=== PATIENT | male | born 1970 | race Two or more races ===

== ENCOUNTER 2021-10-30 17:55 | Emergency (ER) | payer MEDICAID, SELFPAY ==
[2021-10-30 18:07] VITALS: BP 135/86; PULSE 77; RESP 16; TEMP 36.7; O2SAT 95; BMI 39.5
[2021-10-30] MEDS: Acetaminophen 325 MG TABLET 975 MG PO (18:11)
--- NOTE | 2021-10-30 21:20 | ED_ITS ---
HPI - Back Pain/Injury General Chief Complaint: Back Pain/Injury Stated Complaint: Back pain Time Seen by Provider: 10/30/21 21:20 Source: patient Mode of arrival: ambulatory Limitations: no limitations History of Present Illness HPI Narrative: 51-year-old male no known medical history presents to the emergency department complaints of back pain x1 day. Patient tells me he works for [employer] and does a lot of heavy lifting, he was putting down a suitcase in front of him and suddenly started having lower back pain particularly to the left lower back, radiating to the left lower extremity just above the knee. Patient tells me he has had back pain before however he has never felt this weird radiation. Patient tells me it is intermittent in nature worse with certain movements better at rest. He rates it a 10/10 at some points. Denies numbness, tingling, weakness, bowel/urinary incontinence/retention, history of IV drug abuse, history of spinal surgery/injections. MD elicited complaint: back pain Onset (ago): day(s) (1) Timing: intermittent Severity: severe Pain scale (0-10): 10 Quality: sharp Location: lumbar spine Radiation: none Exacerbating factors: movement Relieving factors: immobilization Context: while lifting and bending Associated symptoms: denies other symptoms Related Data Previous Rx's Medication Instructions Recorded cyclobenzaprine 10 mg tablet 10 mg PO BEDTIME PRN #7 tab 10/30/21 lidocaine 5 % topical patch 1 patch TOPICAL DAILY PRN #15 ea 10/30/21 naproxen 500 mg tablet 500 mg PO BID PRN #14 tab 10/30/21 Allergies Allergy/AdvReac Type Severity Reaction Status Date / Time No Known Allergies Allergy Verified 10/30/21 18:09 Review of Systems Review of Systems: Constitutional : No Weight loss, No Fever, No Chills, No Fatigue, No Malaise ENT/Mouth : No sore throat, No Rhinorrhea Eyes: No Eye Pain, No Swelling, No Redness Cardiovascular : No Chest Pain, No SOB, No Dyspnea on Exertion, No Orthopnea, No Edema, No Palpitations Respiratory : No Cough, No Sputum, No Wheezing Gastrointestinal : No Nausea, No Vomiting, No Diarrhea, No Constipation, No abdominal Pain, No Hematochezia, No Melena Genitourinary : No Dysuria, No Urinary Frequency, No Hematuria, Musculoskeletal : No joint pain, No Myalgias, No Joint Swelling Skin : No Skin Lesions, No rash Neuro : No Weakness, No Numbness, No Dizziness, No Headache Psych : No Anxiety/Panic, No Depression All other systems reviewed and are negative Yes all other systems are reviewed and are negative [facility] Past Medical History Attestation statement: The following information was validated with the patient. Source: old records reviewed and nursing notes reviewed Physical Exam Vital Signs: Vital Signs: Last Vital Signs Temp 98.0 F 10/30/21 18:07 Pulse 77 10/30/21 18:07 Resp 16 10/30/21 18:07 BP 135/86 10/30/21 18:07 Pulse Ox 95 10/30/21 18:07 BMI result Body Mass Index 39.5 Vital signs stable Appearance: Alert.? Oriented X3.? No acute distress.? Head: Normocephalic, atraumatic, no step-offs or deformities Eyes: Pupils equal, round and reactive to light.? ENT: Pharynx normal.? Neck: Normal inspection.? Neck supple.? CVS: Normal heart rate and rhythm.? Pulses normal.? Respiratory: No respiratory distress.? Breath sounds normal.? Abdomen: Soft and nontender.? Skin: Skin warm and dry.? Normal skin color.? Normal skin turgor.? Extremities: No lower extremity edema.? No calf ttp. 5/5 strength to bilateral upper and lower extremities Back: No midline tenderness, no C-spine tenderness, full range of motion however pain with forward flexion and extension, no CVA tenderness bilaterally, + paraspinous tenderness to the left lumbar spine region.+ positive straight leg raise bilaterally. Neuro: Oriented X 3.? No motor deficit.? No sensory deficit. CN 2-12 intact . Patient ambulating with steady gait with normal coordination. No saddle paresthesias. Proprioception intact. Course Reevaluation(s) Reevaluation #1: Patient given Toradol, Lidoderm patch. At this time patient will be discharged home with PCP follow-up. Educated him on worrisome signs and symptoms and when to return. At this time I feel comfortable discharge home. Time: 21:26 MDM - Back Pain/Injury MDM Narrative Medical decision making narrative: 2123 51 yo m presents as lower back pain status post heavy lifting and bending over to put down a suitcase. Denies red flag symptoms. Physical examination significant for No midline tenderness, no C-spine tenderness, full range of motion however pain with forward flexion and extension, no CVA tenderness bilaterally, Paraspinous tenderness to the left lumbar spine region. Positive straight leg raise bilaterally. Oriented X 3.? No motor deficit.? No sensory deficit. CN 2-12 intact . Patient ambulating with s teady gait with normal coordination. No saddle paresthesias. Proprioception intact. Based off patient history and physical examination unlikely that this is cauda equina or epidural abscess. Likely sciatica or herniated disc. Plan at this time is Toradol, lidocaine patch. No need for imaging as this is atraumatic back pain. Medical Records Attestation: I reviewed the patient's medical records. Lab Data Attestation: I reviewed the patient's lab results. Critical Care Time Critical Care Time Critical Care Time: No Discharge Plan Discharge Clinical Impression: Strain of lumbar region, Sciatica Patient Disposition: Home, Self-Care Instructions: Sciatica (ED), Back Pain (ED), Lower Back Exercises (ED) Additional Instructions: Take your medications as prescribed. Follow-up with your primary care provider this week. Return to the emergency department with new or worsening symptoms. Such as fevers, chills, chest pain, shortness of breath, nausea, vomiting, dizziness, headache, vision changes, lethargy, numbness, tingling, inability to control your bladder/bowel, worsening pain In case of emergency call 911 Prescriptions: New cyclobenzaprine 10 mg tablet 10 mg PO BEDTIME PRN (Reason: muscle spasm) Qty: 7 0RF lidocaine 5 % adhesive patch,medicated 1 patch topical DAILY PRN (Reason: pain) Qty: 15 0RF Rx Instructions: leave on most painful area for up to 12 hrs naproxen 500 mg tablet 500 mg PO BID PRN (Reason: pain) Qty: 14 0RF Rx Instructions: Take with food Referrals: Physician,None [Primary Care Provider] - 2 days Stand Alone Forms: Work/School Release
[2021-10-30] MEDS: Lidocaine 4 % Patch ADH..PATCH 1 PATCH TRANSDERMA (21:50)
[2021-10-30] MEDS: Ketorolac Tromethamine 15 MG/ML VIAL 30 MG IM (21:51)
== END 2021-10-30 21:58 | disposition home or self-care (01) ==
LOC: HO.ED 21:49
PROVIDERS: Emergency Provider Internal Medicine
DX: S39.012A Strain of muscle, fascia and tendon of lower back, initial encounter (principal); M54.40 Lumbago with sciatica, unspecified side; X50.0XXA Overexertion from strenuous movement or load, initial encounter; Y93.9 Activity, unspecified; Y92.9 Unspecified place or not applicable; Y99.9 Unspecified external cause status
CPT/HCPCS: 96372; 99282; 99284; J1885

== ENCOUNTER 2022-12-13 11:22 | Outpatient (REF) | payer MEDICAID, SELFPAY ==
[2022-12-13 15:32] LABS: Alanine Aminotransferase 18 U/L (0-40); Albumin Level 4.2 g/dL (3.5-5.0); Alkaline Phosphatase 60 U/L (39-117); Aspartate Amino Transferase 19 U/L (5-37); Bilirubin Direct 0.2 mg/dL (0.0-0.5); Bilirubin Total 0.5 mg/dL (0.0-1.0); Total Protein 7.6 g/dL (6.5-8.0)
[2022-12-13 15:51] LABS: Syphilis Screen Nonreactive (Nonreactive)
[2022-12-14 05:41] LABS: HBS Num1 0.11 mIU/mL (0-7.99); HBc Num1 0.18 S/CO (0.00-0.79); HBsAGNum1 0.32 S/CO (0.00-0.99); Hepatitis B Core Antibody Nonreactive (Nonreactive); Hepatitis B Surface Antigen Negative (Negative); ~HepC Num1 0.15 S/CO (0.00-0.79); ~Hepatitis B Surface Antibody NONREACTIVE (Nonreactive); ~Hepatitis C Antibody Nonreactive (Nonreactive)
[2022-12-14 05:47] LABS: Hepatitis A Antibody IgG Nonreactive (Nonreactive); ~Hepatitis A Antibody IgG 0.84 S/CO (0.00-0.99)
[2022-12-16 02:03] LABS: TS Negative Control Passed; TS Panel A 5; TS Panel B 10; TS Positive Control Passed; TSpotTB Positive (Negative)
== END 2022-12-13 11:23 | disposition home or self-care (01) ==
LOC: CF 11:22
PROVIDERS: Visit Provider Family Medicine
DX: Z11.1 Encounter for screening for respiratory tuberculosis (principal); F11.20 Opioid dependence, uncomplicated
CPT/HCPCS: 80076; 86481; 86704; 86706; 86708; 86780; 86803; 87340

== ENCOUNTER 2022-12-28 11:45 | Outpatient (REF) | payer MEDICAID, SELFPAY ==
--- NOTE | ~2022-12-28 | XR_ITS ---
EXAMINATION: XR CHEST CLINICAL INFORMATION: Positive TB test COMPARISON: None available. TECHNIQUE: 2 views of the chest were obtained. FINDINGS: No significant abnormality is noted involving the heart, lungs, mediastinum, bony thorax or soft tissues. XR/XR chest 2V IMPRESSION: Unremarkable examination.
== END 2022-12-28 11:46 | disposition home or self-care (01) ==
LOC: HO.XRAY 11:45
PROVIDERS: Visit Provider Family Medicine
DX: R76.11 Nonspecific reaction to tuberculin skin test without active tuberculosis (principal)
CPT/HCPCS: 71046

== ENCOUNTER 2023-02-05 09:27 | Emergency (ER) | payer MEDICAID, SELFPAY ==
[2023-02-05 09:54] VITALS: BP 125/69; PULSE 67; RESP 18; TEMP 36.6; O2SAT 98; BMI 37.2
--- NOTE | 2023-02-05 11:24 | ED_ITS ---
HPI - Male Genitourinary General Chief complaint: Urogenital-Male Stated complaint: antibodics wanted Time Seen by Provider: 02/05/23 10:41 Source: patient Mode of arrival: ambulatory Limitations: no limitations History of Present Illness HPI Narrative: This is a 52-year-old male with a history of urinary tract infections who presents to the ER with complaints of dysuria for 3 days. Patient denies penile discharge, testicular pain or swelling, rashes, lesions, fevers, abdominal pain, back pain, vomiting. Patient denies any concern for STDs. Related Data Previous Rx's Medication Instructions Recorded cyclobenzaprine 10 mg tablet 10 mg PO BEDTIME PRN muscle spasm 10/30/21 #7 tabs lidocaine 5 % topical patch 1 patch topical DAILY PRN pain #15 10/30/21 ea naproxen 500 mg tablet 500 mg PO BID PRN pain #14 tabs 10/30/21 cefuroxime axetil 500 mg tablet 500 mg PO BID #14 tabs 02/05/23 Allergies Allergy/AdvReac Type Severity Reaction Status Date / Time No Known Allergies Allergy Verified 02/05/23 09:54 Review of Systems Review of Systems: Yes all other systems are reviewed and are negative Constitutional: Constitutional: Reports no additional constitutional complaints, Denies body ache(s), Denies chills, Denies fever(s), Denies headache(s) and Denies weakness Eyes: Eyes: Reports no additional eye complaints and Denies change in vision ENT: Reports system reviewed and no additional complaints, except as documented, Denies dizziness, Denies headache(s), Denies nasal congestion, Denies nasal discharge and Denies neck pain Cardiovascular: Cardiovascular: Reports no additional cardiovascular complaints, Denies chest pain, Denies leg edema and Denies dyspnea Respiratory: Respiratory: Reports no additional respiratory complaints, Denies cough and Denies dyspnea Gastrointestinal: Gastrointestinal: Reports no additional gastrointestinal complaints, Denies abdominal pain, Denies diarrhea, Denies nausea and Denies vomiting Genitourinary: Genitourinary: Reports dysuria, Denies penile discharge, Denies testicular mass, Denies testicular pain, Denies urinary frequency, Denies urinary hesitancy, Denies urinary incontinence and Denies urinary urgency Musculoskeletal: Musculoskeletal: Reports no additional musculoskeletal complaints, Denies back pain, Denies arthralgias, Denies joint swelling, Denies neck pain, Denies numbness and Denies tingling Integumentary/Breasts: Skin/Breast: Reports system reviewed and no additional complaints, except as docu and Denies rash Neurologic: Reports system reviewed and no additional complaints, except as documented, Denies Abnormal speech present, Denies dizziness, Denies headache(s), Denies numbness, Denies tingling and Denies weakness PMFSH Past Medical History Attestation statement: The following information was validated with the patient. Source: old records reviewed and nursing notes reviewed Social History Social History Advance Directives: No Advance Directives Information Provided: Yes Physical Exam Vital Signs: Vital Signs: Last Vital Signs Temp 98 F 02/05/23 09:54 Pulse 67 02/05/23 09:54 Resp 18 02/05/23 09:54 BP 125/69 02/05/23 09:54 Pulse Ox 98 02/05/23 09:54 BMI result Body Mass Index 37.2 Const: General: cooperative, healthy appearing, comfortable and no acute distress Orientation/consciousness: patient oriented x3 Limitations: no limitations HEENT: Head: Yes normal to inspection Ears: hearing grossly normal bilaterally General nose exam: Normal external nose present Face and sinus: Yes normal facial exam Mouth: Normal oral and palatal mucosa present Throat: Yes posterior oropharynx normal Eyes: General: appearance normal, both eyes and all related structures Pupils: Equal, round and reactive pupils present Neck: Neck: Yes normal visual inspection Chest: Chest palpation & inspection: normal inspection of the chest Resp: Effort & Inspection: normal respiratory effort Auscultation: clear to auscultation bilaterally Cardio: Rate: regular rate Rhythm: regular rhythm Peripheral pulses: Peripheral pulses 2+ throughout GI: Inspection: Yes normal to inspection Palpation (GI): Soft to palpation and nontender Auscultation: normal bowel sounds : Other: deferred by patient General: Yes no CVA tenderness Back/Spine/Pelvis: Back: no CVA tenderness Thoracic/Lumbar Spine: thoracic and lumbar spine normal to inspection Skin: General skin exam: no rashes or lesions noted Neuro: General: patient oriented x3, no focal motor deficits and normal sensation to monofilament Cranial nerves: Yes Equal, round and reactive pupils present Cognition (Neuro): normal cognition Speech: No Abnormal speech present Gait exam (Neuro): Normal gait present Motor exam (neuro): 5/5 motor strength present throughout Extrem: General: Yes normal to inspection Course Course Course Narrative: UA is consistent with UTI. No concern for pyelonephritis or renal colic. Patient is nontoxic, afebrile, tolerating p.o.. Plan for discharge home with oral antibiotics. Reviewed worrisome signs and symptoms when to return to the emergency room. Comfortable plan for discharge home. Medical Decision Making Medical Decision Making [facility] Narrative: This is a 52-year-old male with a history of urinary tract infections who presents to the ER with complaints of dysuria for 3 days. Patient denies penile discharge, testicular pain or swelling, rashes, lesions, fevers, abdominal pain, back pain, vomiting. Patient denies any concern for STDs. NO focal abdominal pain, no CVAT. VSS Deferred exam. Low concern for STI,does not want testing Will send UA Differential Diagnosis Differential Diagnoses: The differential diagnosis associated with the presentation includes UTI STI- patient has low concern, deferred exam renal colic, pyelo- no flank pain, abdominal pain Admission/Observation Consideration of admission/observation: Escalation of care including admission/observation considered UA is consistent with UTI. No concern for pyelonephritis or renal colic. Patient is nontoxic, afebrile, tolerating p.o.. No need for labs, IV antibiotics and admission Lab Data [facility] Lab Attestation statement: I reviewed the patient's lab results. + UTI Labs: Lab Results 02/05/23 Range/Units 11:47 Urine Color Yellow Urine Appearance Cloudy Urine pH 8.0 (5.0-9.0) Ur Specific [place] 1.020 (1.005-1.025) Urine Protein 30 (1+) H (Neg-Trace) mg/dL Urine Glucose (UA) Negative (Negative) mg/dL Urine Ketones Negative (Negative) mg/dL Urine Blood Trace H (Negative) Urine Nitrite Negative (Negative) Ur Leukocyte Esterase Large (3+) H (Negative) Urine RBC 3-5 H (0-2) /HPF Urine WBC >50 H (0-5) /HPF Ur Squamous Epith Cells 0-2 (0-2) /HPF Urine Bacteria 4+ (None Seen) Hyaline Casts 0-2 (0-2) /LPF Prescription Management I considered prescription management with: Antibiotic see above Discharge Plan Discharge Clinical Impression: Urinary tract infection Patient Disposition: Home, Self-Care Instructions: Urinary Tract Infection in Men (ED) Additional Instructions: Take the antibiotics as prescribed Increase fluids, rest Prescriptions: New cefuroxime axetil 500 mg tablet 500 mg PO BID Qty: 14 0RF No Action cyclobenzaprine 10 mg tablet 10 mg PO BEDTIME PRN (Reason: muscle spasm) Qty: 7 0RF lidocaine 5 % adhesive patch,medicated 1 patch topical DAILY PRN (Reason: pain) Qty: 15 0RF Rx Instructions: leave on most painful area for up to 12 hrs naproxen 500 mg tablet 500 mg PO BID PRN (Reason: pain) Qty: 14 0RF Rx Instructions: Take with food Referrals: Physician,None [Primary Care Provider] - 1 week
[2023-02-05 11:54] LABS: Appearance Urine Cloudy; Color Urine Yellow; Glucose Urine UA Negative (Negative); Leukocyte Esterase Urine Large (3+) (Negative); Nitrite Urine Negative (Negative); UMIC TRIGGER UACC YES; Urine Blood Trace (Negative); Urine Ketones Negative (Negative); Urine Protein 30 (1+) mg/dL (Neg-Trace)
[2023-02-05 12:12] LABS: Bacteria Urine 4+ (None Seen); Hyaline Casts Urine 0-2 /LPF (0-2); Squamous Epithelial Cell Urine 0-2 /HPF (0-2); UACC Culture Trigger YES; WBC Urine >50 /HPF (0-5)
== END 2023-02-05 12:39 | disposition home or self-care (01) ==
PROVIDERS: Nurse Practitioner Family; Emergency Provider Emergency Medicine
DX: N39.0 Urinary tract infection, site not specified (principal); B96.4 Proteus (mirabilis) (morganii) as the cause of diseases classified elsewhere
CPT/HCPCS: 81001; 87086; 87088; 87186; 99282; 99283

== ENCOUNTER 2023-04-04 13:25 | Outpatient (REF) | payer MEDICAID, SELFPAY | END 2023-04-04 13:26 | disposition home or self-care (01) | LOC: HO.CHCLNP 13:25 | PROVIDERS: Visit Provider Family Medicine | DX: R30.0 Dysuria (principal) | CPT/HCPCS: 87086; 87088; 87186 ==

== ENCOUNTER 2023-04-07 09:43 | Outpatient (REF) | payer MEDICAID, SELFPAY ==
--- NOTE | ~2023-04-07 | XR_ITS ---
EXAMINATION: XR KNEE, LEFT CLINICAL INFORMATION: Chronic pain of left knee COMPARISON: None available. TECHNIQUE: Four views of the left knee. FINDINGS: No fracture. Small joint effusion. There is severe narrowing of the medial joint compartment with large marginal osteophytes with partial [id number] appearance. There is mild narrowing of the patellofemoral joint compartment.. No abnormal soft tissue calcification. 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
--- NOTE | ~2023-04-07 | XR_ITS ---
EXAMINATION: XR SHOULDER, LEFT CLINICAL INFORMATION: Bilateral shoulder and chronic left knee pain COMPARISON: None available. TECHNIQUE: AP external rotation, Grashey, scapular Y, and axillary views of the left shoulder. FINDINGS: The bones are intact. No fracture. No dislocation. This decrease in the size of the normal subacromial space which raises the possibility of impingement syndrome. The glenohumeral joint and acromioclavicular joints are within normal limits. No abnormal soft tissue calcifications. XR/XR shoulder LT min 2V IMPRESSION: 1. No acute bony abnormality. 2. Question of impingement syndrome. MRI scan could be obtained for further evaluation.
--- NOTE | ~2023-04-07 | XR_ITS ---
EXAMINATION: XR SHOULDER, RIGHT CLINICAL INFORMATION: Bilateral shoulder and chronic left knee pain COMPARISON: None available. TECHNIQUE: AP external rotation, Grashey, scapular Y, and axillary views of the right shoulder. FINDINGS: The bones are intact. No fracture. Glenohumeral and acromioclavicular alignment is anatomic with normal glenohumeral joint space. Moderate degenerative change of acromioclavicular joint. Small calcification is seen inferior to the acromium which could be related to calcific tendinitis. XR/XR shoulder RT min 2V IMPRESSION: 1. Moderate degenerative change of the acromioclavicular joint. 2. Possible calcific tendinitis.
== END 2023-04-07 09:44 | disposition home or self-care (01) ==
LOC: HO.XRAY 09:43
PROVIDERS: PCP Family Medicine; Visit Provider Family Medicine
DX: M25.562 Pain in left knee (principal); G89.29 Other chronic pain; M25.511 Pain in right shoulder; M25.512 Pain in left shoulder
CPT/HCPCS: 73030; 73564

== ENCOUNTER 2023-05-18 16:26 | Outpatient (REF) | payer MEDICAID, SELFPAY ==
[2023-05-18 18:05] LABS: Appearance Urine Clear; Color Urine Yellow; Glucose Urine UA Negative (Negative); Leukocyte Esterase Urine Small (1+) (Negative); Nitrite Urine Negative (Negative); Specific Gravity - Urine 1.025 (1.005-1.025); UMIC TRIGGER UACC YES; Urine Blood Negative (Negative); Urine Ketones Negative (Negative); Urine Protein Negative (Neg-Trace)
[2023-05-18 18:09] LABS: Bacteria Urine 1+ (None Seen); Hyaline Casts Urine 0-2 /LPF (0-2); RBC Urine 0-2 /HPF (0-2); Squamous Epithelial Cell Urine 0-2 /HPF (0-2); UACC Culture Trigger YES
== END 2023-05-18 16:27 | disposition home or self-care (01) ==
LOC: HO.CHCLNP 16:26
PROVIDERS: Visit Provider Family Medicine
DX: R30.0 Dysuria (principal)
CPT/HCPCS: 81001; 87086

== ENCOUNTER 2023-06-23 15:55 | Outpatient (REF) | payer MEDICAID, SELFPAY ==
[2023-06-23 17:41] LABS: Appearance Urine Clear; Color Urine Yellow; Glucose Urine UA Negative (Negative); Leukocyte Esterase Urine Negative (Negative); Nitrite Urine Negative (Negative); Specific Gravity - Urine 1.015 (1.005-1.025); Urine Blood Negative (Negative); Urine Ketones Negative (Negative); Urine Protein Negative (Neg-Trace)
[2023-06-23 17:44] LABS: Bacteria Urine None Seen (None Seen); Hyaline Casts Urine 0-2 /LPF (0-2); RBC Urine 0-2 /HPF (0-2); Squamous Epithelial Cell Urine 0-2 /HPF (0-2); WBC Urine 0-5 /HPF (0-5)
[2023-06-23 18:26] LABS: Alanine Aminotransferase 21 U/L (0-40); Albumin Level 3.9 g/dL (3.5-5.0); Alkaline Phosphatase 58 U/L (39-117); Anion Gap 11 (12-20); Aspartate Amino Transferase 20 U/L (5-37); Bilirubin Total 0.4 mg/dL (0.0-1.0); Blood Urea Nitrogen 14 mg/dL (9-16); Calcium 9.1 mg/dL (8.4-10.2); Carbon Dioxide 29 mmol/L (22-29); Chloride 104 mmol/L (96-108); Cholesterol 158 mg/dL (<200); Estimated Glomerular Filt Rate > 60; Glucose Random 88 mg/dL (60-115); HDL Cholesterol 51 mg/dL (>40); LDL Cholesterol Calculated 90 mg/dL (<100); Potassium 4.1 mmol/L (3.3-5.1); Sodium 140 mmol/L (135-145); Total Protein 7.4 g/dL (6.5-8.0); Triglycerides 89 mg/dL (<150)
[2023-06-23 18:41] LABS: TSH reflex Free T4 1.02 uIU/mL (0.32-4.0)
[2023-06-23 18:42] LABS: Prostate Specific Antigen 0.23 ng/mL (<0.05-4.0)
[2023-06-24 07:15] LABS: Syphilis Screen Nonreactive (Nonreactive)
== END 2023-06-23 15:56 | disposition home or self-care (01) ==
LOC: HO.CHCLDS 15:55
PROVIDERS: Visit Provider Family Medicine
DX: E66.01 Morbid (severe) obesity due to excess calories (principal); R30.0 Dysuria; N39.0 Urinary tract infection, site not specified; Z68.42 Body mass index [BMI] 45.0-49.9, adult
CPT/HCPCS: 36415; 80053; 80061; 80307; 81001; 84153; 84443; 86780

== ENCOUNTER 2023-08-26 10:29 | Emergency (ER) | payer OTHER, SELFPAY ==
--- NOTE | ~2023-08-26 | XR_ITS ---
EXAMINATION: XR SHOULDER, RIGHT CLINICAL INFORMATION: Pain injury COMPARISON: Right shoulder radiograph from 04/07/2023 TECHNIQUE: Two views of the right shoulder. FINDINGS: No acute visible fracture or dislocation. Arthritic changes of the glenohumeral and acromioclavicular joint. Joint space alignment otherwise maintained. Soft tissues are unremarkable. Visualized portions of the chest are unremarkable. XR/XR shoulder RT min 2V IMPRESSION: 1. No acute visible fracture or dislocation. 2. Arthritic changes of the glenohumeral and acromioclavicular joint.
[2023-08-26 11:01] VITALS: BP 129/78; PULSE 63; RESP 16; TEMP 36.9; O2SAT 97; BMI 48.3
--- NOTE | 2023-08-26 11:09 | ED_ITS ---
HPI - Extremity Problem General Chief complaint: Extremity Injury, Upper Stated complaint: R shoulder pain Time Seen by Provider: 08/26/23 13:35 Source: patient, family () and RN notes reviewed Mode of arrival: ambulatory Limitations: no limitations History of Present Illness HPI Narrative: 53 year old male with no significant pmhx presents to the ED today for evaluation of right upper arm/ shoulder pain s/p lifting up a heavy box yesterday. States as he was lifting the box, the came back towards him and fell into his right shoulder. Admits to hearing a popping sensation. Endorses pain to right shoulder since this time. He has been taking Motrin at home with some improvement in pain. Admits to history of arthritis requiring corticosteroid injections. Denies previous injury/ trauma or surgery to right shoulder. Denies fever, chills, numbness/tingling/weakness of the RUE. Denies hx of IVDU. Related Data Previous Rx's Medication Instructions Recorded cyclobenzaprine 10 mg tablet 10 mg PO BEDTIME PRN muscle spasm 10/30/21 #7 tabs lidocaine 5 % topical patch 1 patch topical DAILY PRN pain #15 10/30/21 ea naproxen 500 mg tablet 500 mg PO BID PRN pain #14 tabs 10/30/21 cefuroxime axetil 500 mg tablet 500 mg PO BID #14 tabs 02/05/23 ibuprofen 800 mg tablet 800 mg PO Q6-8H PRN pain (scale 08/26/23 score 4-6) #20 tabs prednisone 20 mg tablet 40 mg (2 x 20 mg) PO DAILY 5 days 08/26/23 #10 tabs Allergies Allergy/AdvReac Type Severity Reaction Status Date / Time No Known Allergies Allergy Verified 08/26/23 11:01 Review of Systems Review of Systems: Constitutional: No fever, chills, fatigue, night sweats, weight changes ENT/Mouth: No ear pain, hearing loss, nasal congestion, sinus pain, rhinorrhea, sore throat Eyes: No eye pain, swelling, redness, vision changes, discharge Cardio: No chest pain, palpitations, CONDON, orthopnea, peripheral edema Pulm: No SOB, cough, sputum, wheezing, dyspnea, hemoptysis GI: No nausea, vomiting, hematemesis, abdominal pain, diarrhea, constipation, hematochezia, melena : No irregular bleeding, dysuria, frequency, urgency, hesitancy, hematuria, flank pain, urinary flow changes, urinary incontinence or retention MSK: No back pain, neck pain, joint pain, myalgias, +right shoulder pain Skin: No lesions, rashes Neuro: No weakness, numbness, paresthesias, LOC, dizziness, headache Psych: No anxiety/panic, depression, SI/HI, AH/VH All other systems reviewed and are negative. [facility] Past Medical History Attestation statement: The following information was validated with the patient. Source: old records reviewed and nursing notes reviewed Social History Social History Advance Directives: No Advance Directives Information Provided: Yes Physical Exam Vital Signs: Vital Signs: Last Vital Signs Temp 98.4 F 08/26/23 11:01 Pulse 63 08/26/23 11:01 Resp 16 08/26/23 11:01 BP 129/78 08/26/23 11:01 Pulse Ox 97 08/26/23 11:01 O2 Del Method Room Air 08/26/23 11:01 BMI result Body Mass Index 48.3 Vital signs stable, afebrile. Const: General: cooperative, healthy appearing, comfortable and no acute distress Orientation/consciousness: patient oriented x3 Limitations: no limitations HEENT: Head: Yes normal to inspection, Yes No palpable skull fracture present, Yes normocephalic and Yes atraumatic Eyes: General: appearance normal, both eyes and all related structures Conjunctivae: conjunctivae normal Sclerae: sclerae normal Pupils: Equal, round and reactive pupils present EOM: EOMs intact bilaterally Neck: Neck: Yes normal visual inspection and Yes full ROM Chest: Chest palpation & inspection: normal inspection of the chest and normal palpation of entire chest wall Resp: Effort & Inspection: normal respiratory effort and able to speak in complete sentences Auscultation: clear to auscultation bilaterally Cardio: Rate: regular rate Rhythm: regular rhythm Back/Spine/Pelvis: Other: No midline spinous tenderness or step off deformity. No paraspinal muscle tenderness. Skin: General skin exam: no rashes or lesions noted Neuro: Other: Strength 5/5 intact throughout.? No saddle anesthesia.? Sensation intact to light touch.? Neurovascular intact distally.? General: patient oriented x3 Cranial nerves: Yes Equal, round and reactive pupils present Extrem: Other: + no overlying skin changes noted to rig ht shoulder or upper arm. No visible deformity. Full ROM intact to right shoulder and right elbow. Strength 5/5 intact to RUE. There is right shoulder pain elicited with flexion of right elbow against resistance. No tenderness to palpation or palpable deformity noted over AC joint or clavicle. 2+ radial and ulnar pulses. NV intact distally. General: Yes normal to inspection, Yes full ROM, Yes capillary refill normal and Yes normal gait Course Course Course Narrative: This is an RME: Additional HPI, ROS, PE not included below will be deferred to primary provider. Patient is a 53-year-old male who presents emergency department for evaluation of a right shoulder injury. Reports yesterday while at work he was lifting a heavy box over his head when he felt a sudden popping sensation. He tried to rest yesterday and took ibuprofen 600 mg a few times with only some relief of pain. Slightly limited AROM due to pain. 2+ radial pulse. Reports history of arthritis and previous cortisone injections. Plan: XR Reevaluation(s) Reevaluation #1: 1405-- x-ray of right shoulder does not demonstrate acute fracture or dislocation. There are findings of arthritic changes within the glenohumeral and AC joint consistent with history of osteoarthritis. Discussed all workup results with patient. He is requesting that Motrin be sent to his pharmacy as this works well for him. Will also send a course of prednisone to pharmacy. Patient supplied with sling today. Educated patient on moving shoulder round to prevent frozen shoulder. Patient has remained stable throughout ED visit today. Discussed worrisome signs and symptoms and when to return to the ED. All questions answered at this time. Patient is agreeable with disposition and stable for discharge. Medical Decision Making Medical Decision Making MDM Narrative: 53 year old male with no significant pmhx presents to the ED today for evaluation of right upper arm/ shoulder pain s/p lifting up a heavy box yesterday. Patient is nontoxic-appearing and in no acute distress. Vital signs stable. Afebrile. On exam of the right upper extremity, there are no overlying skin changes noted to right shoulder or upper arm. No visible deformity. Full ROM intact to right shoulder and right elbow. Strength 5/5 intact to RUE. There is right shoulder pain elicited with flexion of right elbow against resistance. No tenderness to palpation or palpable deformity noted over AC joint or clavicle. 2+ radial and ulnar pulses. NV intact distally. Differential diagnosis includes muscle sprain/strain, contusion, fracture, dislocation, arthritis. Low suspicion for rotator cuff injury, neurovascular compromise, threat to limb, compartment syndrome. Plan for imaging, pain control and discharge. Differential Diagnosis Differential Diagnoses: The differential diagnosis associated with the presentation includes as above. Admission/Observation not indicated. Independent Interpretation I performed an independent interpretation of an: Plain X-Ray Interpretation: I have personally reviewed xray results and agree with radiologist's interpretation. Radiology Impression Discussion of test interpretation with radiology: I have reviewed the radiologist's reading. Radiologist Impression: EXAMINATION: XR SHOULDER, RIGHT CLINICAL INFORMATION: Pain injury COMPARISON: Right shoulder radiograph from 04/07/2023 TECHNIQUE: Two views of the right shoulder. FINDINGS: No acute visible fracture or dislocation. Arthritic changes of the glenohumeral and acromioclavicular joint. Joint space alignment otherwise maintained. Soft tissues are unremarkable. Visualized portions of the chest are unremarkable. XR/XR shoulder RT min 2V IMPRESSION: 1. No acute visible fracture or dislocation. 2. Arthritic changes of the glenohumeral and acromioclavicular joint. Independent Historian Clinical information obtained from an independent historian. History obtained from or confirmed by: Spouse () Prescription Management I considered prescription management with: Pain Medication and Other (Prednisone) Chronic Conditions Patient?s care impacted by: Other (Arthritis) Social Determinants Patient?s care significantly limited by Social Determinants of Health including: Other Social Determinant of Health Procedures Orthopedic Splinting/Casting Injury #1: Side: right Upper Extremity Injury Location: shoulder Upper Extremity Immobilizer: sling/shoulder immobilizer Critical Care Time Critical Care Time Critical Care Time: Yes Total Critical Care Time: 36 Attestation: Critical care time in the amount of 36 minutes has been provided to the patient in terms of direct patient care, frequent reevaluation, review and interpretation of medical data and results, and management of potentially life- threatening conditions. This is all outside of any medical procedures. Discharge Plan Discharge Clinical Impression: Muscle strain of right shoulder region Patient Disposition: Home, Self-Care Instructions: Muscle Strain (ED), How to Use a Sling (ED) Additional Instructions: Your x-rays today are reassuring. You likely have a muscle strain within your right shoulder/upper arm. You were provided with a sling today and given a dose of pain medication. Motrin has been sent to your pharmacy. Take this as needed for pain/discomfort. Do not take this with other NSAIDs such as naproxen as this may increase risk of GI bleeding. Prednisone as a steroid that has been sent to your pharmacy. Please take this over the next 5 days. Please return with new or worsening symptoms. In the case of an emergency Prescriptions: New prednisone 20 mg tablet 40 mg PO DAILY 5 Days Qty: 10 0RF ibuprofen 800 mg tablet 800 mg PO Q6-8H PRN (Reason: pain (scale score 4-6)) Qty: 20 0RF No Action cyclobenzaprine 10 mg tablet 10 mg PO BEDTIME PRN (Reason: muscle spasm) Qty: 7 0RF lidocaine 5 % adhesive patch,medicated 1 patch topical DAILY PRN (Reason: pain) Qty: 15 0RF Rx Instructions: leave on most painful area for up to 12 hrs naproxen 500 mg tablet 500 mg PO BID PRN (Reason: pain) Qty: 14 0RF Rx Instructions: Take with food cefuroxime axetil 500 mg tablet 500 mg PO BID Qty: 14 0RF Referrals: Marlee Larson MD [Primary Care Provider] -
[2023-08-26 14:21] VITALS: BP 155/89; PULSE 74; RESP 16; TEMP 37; O2SAT 95
[2023-08-26 14:38] VITALS: BP 154/89; PULSE 85; RESP 20; TEMP 37.1; O2SAT 100
[2023-08-26] MEDS: Ketorolac Tromethamine 30 MG/ML VIAL IM (14:38)
== END 2023-08-26 14:39 | disposition home or self-care (01) ==
PROVIDERS: Emergency Provider Emergency Medicine Emergency Medical Services; PCP Family Medicine
DX: S46.911A Strain of unspecified muscle, fascia and tendon at shoulder and upper arm level, right arm, initial encounter (principal); X50.9XXA Other and unspecified overexertion or strenuous movements or postures, initial encounter; Y93.89 Activity, other specified; Y92.9 Unspecified place or not applicable; Y99.9 Unspecified external cause status; M25.511 Pain in right shoulder
CPT/HCPCS: 73030; 96372; 99283; 99284; J1885

== ENCOUNTER 2024-02-09 16:27 | Outpatient (REF) | payer SELFPAY ==
[2024-02-09 17:38] LABS: Appearance Urine Clear; Color Urine Yellow; Glucose Urine UA Negative (Negative); Leukocyte Esterase Urine Small (1+) (Negative); Nitrite Urine Negative (Negative); PH 5.5 (5.0-9.0); Specific Gravity - Urine 1.025 (1.005-1.025); UMIC TRIGGER UACC YES; Urine Blood Negative (Negative); Urine Ketones Negative (Negative); Urine Protein Negative (Neg-Trace)
[2024-02-09 17:44] LABS: Bacteria Urine None Seen (None Seen); Hyaline Casts Urine 0-2 /LPF (0-2); Squamous Epithelial Cell Urine 0-2 /HPF (0-2); UACC Culture Trigger YES
[2024-02-09 17:47] LABS: RBC Urine 0-2 /HPF (0-2)
== END 2024-02-09 16:28 | disposition home or self-care (01) ==
LOC: HO.CHCLNP 16:27
PROVIDERS: Visit Provider Family Medicine
DX: R30.0 Dysuria (principal)
CPT/HCPCS: 81001; 87086

== ENCOUNTER 2024-03-30 18:03 | Outpatient (REF) | payer OTHER, SELFPAY | END 2024-03-30 18:04 | disposition home or self-care (01) | LOC: HO.HHCLNP 18:03 | PROVIDERS: Visit Provider Family Medicine | DX: N39.0 Urinary tract infection, site not specified (principal) | CPT/HCPCS: 87086 ==

== ENCOUNTER 2024-07-14 08:59 | Day surgery (SDC) | payer OTHER, SELFPAY ==
[2024-07-14] VITALS (11 sets, daily range): BP systolic 114–163; BP diastolic 71–85; PULSE 63–98; RESP 16–19; TEMP 36.4–37.4; O2SAT 93–99; BMI 46.6
--- NOTE | ~2024-07-14 | US_ITS ---
CLINICAL HISTORY: epigastric abd pain, RUQ pain US abdomen limited Comparison: None Findings: The pancreas is not well-visualized. The aorta and inferior vena cava are normal caliber. The liver is increased in size and echotexture, measuring up to 19.5 cm.. There is no intrahepatic bile duct dilatation. The common duct is 4 mm in diameter. Gallstones are present. The gallbladder wall is borderline thickened 3 mm and reportedly there is a positive sonographic Morales's. The main portal vein is antegrade. The right kidney is 11.7 cm in length. No ascites. IMPRESSION: Gallstones are present. There is borderline gallbladder wall thickening and reportedly a positive sonographic Morales's. Findings may reflect early acute calculus cholecystitis. Hepatomegaly and hepatic steatosis. This document has been electronically signed by: Denis Arellano MD on 07/14/2024 10:24:58
--- NOTE | 2024-07-14 09:30 | ED.ABDPAIN ---
HPI - Abdominal Pain General Chief Complaint: Abdominal Pain Stated Complaint: stomach pain Time Seen by Provider: 07/14/24 09:28 Source: patient Mode of arrival: ambulatory Limitations: no limitations History of Present Illness ED Provider: Lisa Davis PA-C HPI narrative: 54 yo male with history of morbid obesity presents to the ER for evaluation of acute onset of epigastric abdominal pain and recurrent vomiting that started last night around 11pm after eating honey BBQ chicken. He states he was up all night vomiting. No diarrhea. Last BM yesterday and was normal. No fevers but he has had chills. He reports the pain is in his epigastric area, was aching and now is sharp. It radiates through his abdomen to his back. No chest pain or difficulty breathing. He reports history of several episodes like this for the last 1 year and is due to see a Surgeon in [place] on 07/25. MD elicited complaint: abdominal pain Onset (ago): hour(s) Pain Consistency: constant Location: epigastric Severity: severe Pain scale (0-10): 8 Quality: aching and sharp Radiation: back Exacerbating factors: nothing Relieving factors: nothing Context: history of similar episodes Associated symptoms: nausea and vomiting Related Data Previous Rx's ?Medication ?Instructions ?Recorded cyclobenzaprine 10 mg tablet 10 mg PO BEDTIME PRN muscle spasm 10/30/21 #7 tabs lidocaine 5 % topical patch 1 patch topical DAILY PRN pain #15 10/30/21 ea naproxen 500 mg tablet 500 mg PO BID PRN pain #14 tabs 10/30/21 cefuroxime axetil 500 mg tablet 500 mg PO BID #14 tabs 02/05/23 ibuprofen 800 mg tablet 800 mg PO Q6-8H PRN pain (scale 08/26/23 score 4-6) #20 tabs prednisone 20 mg tablet 40 mg (2 x 20 mg) PO DAILY 5 days 08/26/23 #10 tabs hydrocodone 5 mg-acetaminophen 325 1 tab PO Q4-6H PRN pain #30 tabs 07/14/24 mg tablet Allergies Allergy/AdvReac Type Severity Reaction Status Date / Time No Known Allergies Allergy Verified 07/14/24 09:15 Review of Systems Review of Systems Yes all other systems are reviewed and are negative PMFSH Past Medical History Medical History (Updated 07/14/24 @ 14:43 by Hector Forbes MD) Morbid obesity Social History Social History Smoked in Last 30 Days: No Use of substances other than those prescribed or required for medical reasons: No Advance Directives: No Advance Directives Information Provided: Yes Do you have a plan to hurt others: No Plan Physical Exam ED Vital Signs: Vital Signs - 24 hr 07/14/24 09:11 Temperature 98.2 F Pulse Rate 63 Respiratory Rate 18 Blood Pressure 114/81 Pulse Oximetry 98 Oxygen Delivery Method Room Air BMI result Body Mass Index 46.6 Appearance: Alert. Oriented X3. Sitting on the edge of the stretcher, appears uncomfortable. Head: normocephalic, atraumatic. Eyes: Pupils equal, round and reactive to light. ENT: Pharynx normal. No tonsillar swelling or exudate. Neck: Normal inspection. Neck supple. CVS: Normal heart rate and rhythm. Pulses normal. Respiratory: No respiratory distress. Breath sounds normal. Abdomen: Obese, Soft with epigastric tenderness, negative sibley's sign +BS x4 Skin: Skin warm and dry. Normal skin color. Normal skin turgor. No rashes. Extremities: No lower extremity edema. No joint swelling. Neuro/psych: Oriented X 3. grossly normal, nonfocal. CN II-XII intact. Normal speech and cognition. Medical Decision Making Medical Decision Making MDM Narrative: 54 yo male presenting to the ER for evaluation of acute onset epigastric abdominal pain that radiates to his back along with persistent N/V that started last night at 11pm after being BBQ chicken. given morphine and zofran with ongoing pain and vomiting. iv Dilaudid and 2nd dose zofran given. labs reassuring with normal LFTs and lipase US showing gallstones, question early calculous cholecystitis. no leukocytosis, no fever, no tachycardia. not septic. hold off on abx for now pending surgery evaluation. Dr. forbes messaged to evaluate the patient 14:46 - Dr. Forbes to admit for lap dominick today. Differential Diagnosis Differential Diagnoses: The differential diagnosis associated with the presentation includes cholecystitis, cholangitis, biliary obstruction, biliary colic, pancreatitis Admission/Observation Consideration of admission/observation: Escalation of care including admission/observation considered Consult Healthcare Provider Management of the patient was discussed with: Speech And Language Specialist andrei gen surg Lab Data [facility] Lab Attestation statement: I reviewed the patient's lab results. mild anemia, normal LFTs and lipase 07/14/24 10:01 07/14/24 10:01 Labs: Lab Results 07/14/24 07/14/24 Range/Units 10:01 10:32 WBC 9.8 (4.8-10.8) X10*3/uL RBC 4.50 L (4.60-5.80) X10*6/uL Hgb 13.1 L (14.0-18.0) g/dl Hct 38.6 L (42.0-52.0) % MCV 85.8 (80.0-98.0) fL MCH 29.1 (27.0-33.0) pg MCHC 33.9 (31.0-36.0) g/dl RDW 12.3 (11.0-16.0) % Plt Count 223 (160-400) X10*3/uL MPV 9.4 (9.4-12.4) fL Immature Gran % (Auto) 0.4 (0.0-0.4) % Neut % (Auto) 83.3 H (45-73) % Lymph % (Auto) 11.8 L (20-40) % [place] % (Auto) 4.2 (2-11) % Eos % (Auto) 0.1 (0-4) % Baso % (Auto) 0.2 (0-2) % Lymph # (Auto) 1.2 (1.2-4.9) X10*3/uL [place] # (Auto) 0.4 (0.1-1.2) X10*3/uL Eos # (Auto) 0.0 (0.0-0.4) X10*3/uL Baso # (Auto) 0.0 (0.0-0.2) X10*3/uL Abs Immat Gran (auto) 0.04 H (0.00-0.03) X10*3/uL Absolute Neuts (auto) 8.2 (2.0-8.3) x10*3/uL Absolute Nucleated RBC 0.000 (0.0-0.012) X10*3/uL Nucleated RBC % (auto) 0.0 (0.0-0.2) /100WBC Sodium 139 (135-145) mmol/L Potassium 4.8 (3.3-5.1) mmol/L Chloride 104 (96-108) mmol/L Carbon Dioxide 27 (22-29) mmol/L Anion Gap 13 (12-20) BUN 11 (9-16) mg/dL Creatinine 0.98 (0.5-1.4) mg/dL Estim Creat Clear Calc 109.3 Estimated GFR > 60 Random Glucose 124 H (60-115) mg/dL Calcium 9.6 (8.4-10.2) mg/dL Magnesium 2.0 (1.6-2.6) mg/dL Total Bilirubin 0.8 (0.0-1.0) mg/dL Direct Bilirubin 0.3 (0.0-0.5) mg/dL AST 23 (5-37) U/L ALT 21 (0-40) U/L Alkaline Phosphatase 58 (39-117) U/L Total Protein 7.7 (6.5-8.0) g/dL Albumin 4.1 (3.5-5.0) g/dL Lipase 12 (8-78) U/L Urine Color Yellow Urine Appearance Clear Urine pH 8.0 (5.0-9.0) Ur Specific [place] 1.020 (1.005-1.025) Urine Protein Negative (Neg-Trace) mg/dL Urine Glucose (UA) Negative (Negative) mg/dL Urine Ketones Negative (Negative) mg/dL Urine Blood Negative (Negative) Urine Nitrite Negative (Negative) Ur Leukocyte Esterase Trace H (Negative) Urine RBC 0-2 (0-2) /HPF Urine WBC 6-10 (0-5) /HPF Ur Squamous Epith Cells 0-2 (0-2) /HPF Urine Bacteria None Seen (None Seen) Hyaline Casts 0-2 (0-2) /LPF Influenza Type A (PCR) NEGATIVE (Negative) Influenza Type B (PCR) NEGATIVE (Negative) RSV RNA Qual (PCR) NEGATIVE (Negative) SARS-CoV-2 RNA (RT-PCR) NEGATIVE (Negative) Independent Interpretation I performed an independent interpretation of an: Ultrasound Interpretation: gallstones seen, no biliary duct dilatation appreciated Radiology Impression Discussion of test interpretation with radiology: I have reviewed the radiologist's reading. External Record Review External record reviewed: Outpatient record and Prior outpatient labs Prescription Management I considered prescription management with: Pain Medication and Antibiotic Chronic Conditions Patient?s care impacted by: Other (morbid obesity) Medications Administered Discontinued Medications Generic Name Dose Route Start Last Admin Trade Name Santosh PRN Reason Stop Dose Admin Hydromorphone HCl 1 mg 07/14/24 11:48 07/14/24 12:15 Hydromorphone Hcl 1 Mg/Ml Syringe IVPUSH 07/14/24 11:49 1 mg ONCE ONE Administration Protocol Morphine Sulfate 4 mg 07/14/24 09:29 07/14/24 10:37 Morphine Sulfate 4 Mg/Ml Cartridge IVPUSH 07/14/24 09:30 4 mg ONCE ONE Administration Protocol Ondansetron HCl 4 mg 07/14/24 09:29 07/14/24 10:36 Ondansetron Hcl 4 Mg/2 Ml Vial IVPUSH 07/14/24 09:30 4 mg ONCE ONE Administration Ondansetron HCl 4 mg 07/14/24 11:48 07/14/24 12:15 Ondansetron Hcl 4 Mg/2 Ml Vial IVPUSH 07/14/24 11:49 4 mg ONCE ONE Administration Critical Care Time Critical Care Time Critical Care Time: Yes Total Critical Care Time: 36 Attestation: I have personally provided critical care time exclusive of time spent on separately billable procedures. Time includes review of lab data, radiology results, discussion with consultants, and monitoring for potential decompensation. Intervention performed as documented. Discharge Plan Discharge Clinical Impression: Acute cholecystitis Patient Disposition: Admitted As Inpatient
--- OUTSIDE RECORDS SUMMARY | 2024-07-14 09:35 | XMS_ITS | Encounter Summary ---
Author Organization [facility] [employer] Address [address] [place] [address] Care Team Providers Care Lei Seller Name Role Phone Marlee Larson MD Primary Care Provider [phone] Reason for Visit * Reason Onset Date Comments Appointment Request 01/06/2024 Encounter Details Date Type Department Care Team ([facility] st Contact Info) Description 01/06/2024 Telephone [facility] MEDICINE [address] [place] [address] Marlee Larson MD [address] [place], [place] [id number] Appointment Request Social History Tobacco Use Types Packs/Day Years Used Date Smoking Tobacco: Never Passive Smoke Exposure: Never Smokeless Tobacco: Never Depression Answer Date Recorded Patient Health Questionnaire-9 Score 1 04/04/2023 Patient Health Questionnaire-9 Score 1 04/04/2023 Last PHQ-9: Questionnaire Data Not on file 1 06/04/2022 Housing Stability Answer Date Recorded What is your housing situation today? I have licha currie 03/28/[address] you li ve. Do you have problems with any of the following? None of the above 03/28/2023 Food Insecurity Answer Date Recorded Within the past 12 months, y ou worried that your food would run out before you got money to buy more: Never True 03/28/2023 Within the past 12 months,th e food you bought just didn't last and you didn't have enough money to get more: Never True Transportation Answer Date Recorded In the past 12 months, has l ack of transportation kept you from medical appts, meetings, work or from getting things needed for daily living? No 03/28/2023 Utilities Answer Date Recorded In the past 12 months, has t he electric, gas, oil or water company threatened to shut off services in your home? No 03/28/2023 Depression Answer Date Recorded Patient Health Questionnaire-2 Score 0 04/04/2023 Sex and Gender Information Value Date Recorded Sex Assigned at Male 11/25/2022 10:21 AM EDT Legal Sex Male 10:20 AM EDT Gender Identity Male 11/25/2022 10:21 AM EDT Sexual Orientation Straight 11/25/2022 10 :43 AM EDT documented as of this encounter Miscellaneous Notes * Telephone Encounter - Veronique Bearden - 01/06/2024 11:46 AM EDT Tc from pt requesting appt with PCP in order to get cortisone shots. documented in this encounter Plan of Treatment Upcoming Encounters Date Type Department Care Team (Late st Contact Info) Description 08/06/2024 10:30 AM EDT Office Visit [facility] [address] [place] [address] Carloz Victor MD [address] [place] [address] documented as of this encounter Visit Diagnoses Not on filedocumented in this encounter Additional Health Concerns Assessment Noted Time PHQ-9 Depression Total Score: 1 04/04/20 10:49 AM EST documented as of this encounter Care Teams Lei Seller Relationship Specialty Start Date End Date Marlee Larson MD [address] [place] [address] PCP - General Family Medicine 04/04/23 documented as of this encounter
--- OUTSIDE RECORDS SUMMARY | 2024-07-14 09:35 | XMS_ITS | Clinical Summary ---
Author Organization [address] [facility] Address [address] [place] [address] Phone Care Team Providers Care Diversity Specialist Name Role Phone Unavailable Primary Care Provider Unavailabl e Encounters Date Type Department Care Team Description 06/12/2024 Lab Requisition [facility] - Main Lab [address] [facility] [place] [address] Abiodun Magaña, ISA Gross hematuria from Last 3 Months Social History Tobacco Use Types Packs/Day Years Used Date Smoking Tobacco: Never Assessed Sex and Gender Information Value Date Recorded Sex Assigned at Not on file Legal Sex Male 8:28 AM EST Gender Identity Not on file Sexual Orientation Not on file Plan of Treatment Health Maintenance Due Date Last Done Comments DTaP,Tdap,and Td Vaccines (1 - Tdap) 02/23/1991 Hepatitis B Vaccines (1 of 3 - 19+ 3-dose series) 02/23/1991 Pneumococcal Vaccine: 50+ Ye ars (1 of 1 - PCV) 02/23/2022 Zoster Vaccines (1 of 2) 02/23/2022 Cholesterol Screening (Lipid Panel) 05/02/2022 Colorectal Cancer Screening: Colonoscopy 05/02/2022 Depression Screening 05/02/2022 HIV Screening 05/02/2022 Hepatitis C Screening 05/02/2022 Social Influencers of Health Screening 05/02/2022 COVID-19 Vaccine ( - 2023-2 5 season) 2024 Influenza Vaccine (#1) 2024 HIB Vaccines Aged Out No longer eligi ble based on patient's age to complete this topic HPV Vaccines Aged Out No longer eligi ble based on patient's age to complete this topic Hepatitis A Vaccines Aged Out No long er eligible based on patient's age to complete this topic IPV Vaccines Aged Out No longer eligi ble based on patient's age to complete this topic MMR Vaccines Aged Out No longer eligi ble based on patient's age to complete this topic Meningococcal ACWY Vaccine Aged Out N o longer eligible based on patient's age to complete this topic Meningococcal B Vacine Aged Out No lo nger eligible based on patient's age to complete this topic Pneumococcal Vaccine: Pediat rics (0 to 5 Years) and At-Risk Patients (6 to 64 Years) Aged Out No longer eligible b ased on patient's age to complete this topic RSV Immunization Patients Un esteban 20 months Aged Out No longer eligible b ased on patient's age to complete this topic Varicella Vaccines Aged Out No longer eligible based on patient's age to complete this topic Procedures Procedure Name Priority Date/Time Associated Diagnosis Comments AP OUTSIDE CONSULT Routine 06/05/2024 12 :00 AM EST Gross hematuria from Last 3 Months Results * Anatomic pathology outside consult (06/05/2024 12:00 AM EST) Final Diagnosis A. Urine, Voided, ([id number]): Negative for high grade urothelial carcinoma. 06/20/2024 1:26 PM [facility] Clinical Information Gross hematuria R31.0 Urine cytology 06/20/2024 1:26 PM [facility] Gross Description A. Urine, Voided, ([id number]): Received is one ThinPrep slide for cytology. 06/20/2024 1:26 PM [facility] Disclaimer Unless otherwise specified, all tissue is 10% NB formalin fixed and paraffin embedded. Technical pathology services provided by [facility] at [address] [facility] [address], [place] [address] (CLIA #[id number]/S stephanie Zarate MD, Link Trainer) 06/20/2024 1:26 PM [facility] Tissue Urine specimen from urethra / Unknown 06/05/2024 06/12/2024 12:15 PM EST Abiodun MOSS LAB PATHOLOGY ORDERABLES Final Result [facility] [place] ([facility]) [facility] [address] [place] [address], from Last 3 Months
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
--- OUTSIDE RECORDS SUMMARY | 2024-07-14 09:35 | XMS_ITS | Encounter Summary ---
Author Organization [employer] Address [address] [place] [address] Care Team Providers Care Radiology Clerk Name Role Phone Unavailable Primary Care Provider Unavailabl e Encounter Details Date Type Department Care Team (Late st Contact Info) Description 06/12/2024 Lab Requisition [facility] - Main Lab [address] [facility] [place] [address] Abiodun Magaña PA [address] [facility] [address] [place] [address] Gross hematuria Social History Tobacco Use Types Packs/Day Years Used Date Smoking Tobacco: Never Assessed Sex and Gender Information Value Date Recorded Sex Assigned at Not on file Legal Sex Male 8:28 AM EST Gender Identity Not on file Sexual Orientation Not on file documented as of this encounter Plan of Treatment Not on file documented as of this encounter Procedures Procedure Name Priority Date/Time Associated Diagnosis Comments AP OUTSIDE CONSULT Routine 06/05/2024 12 :00 AM EST Gross hematuria documented in this encounter Results * Anatomic pathology outside consult (06/05/2024 12:00 AM EST) Final Diagnosis A. Urine, Voided, ([id number]): Negative for high grade urothelial carcinoma. 06/20/2024 1:26 PM EST [facility] Clinical Information Gross hematuria R31.0 Urine cytology 06/20/2024 1:26 PM EST [facility] Gross Description A. Urine, Voided, ([id number]): Received is one ThinPrep slide for cytology. 06/20/2024 1:26 PM EST [facility] Disclaimer Unless otherwise specified, all tissue is 10% NB formalin fixed and paraffin embedded. Technical pathology services provided by [facility] at [address] [facility] [address], [place] [address] (CLIA #[id number]/S stephanie Zarate MD, Collection Coordinator) 06/20/2024 1:26 PM EST [facility] Tissue Urine specimen from urethra / Unknown 06/05/2024 06/12/2024 12:15 PM EST us Abiodun Magaña PA LAB PATHOLOGY ORDERABLES Final Result [facility] [address] [place] [address], documented in this encounter Visit Diagnoses Diagnosis Gross hematuria documented in this encounter
--- OUTSIDE RECORDS SUMMARY | 2024-07-14 09:35 | XMS_ITS | Encounter Summary ---
Author Organization [employer] [facility], Formerly [facility] Address [address] [place] [address] Care Team Providers Care Power And Recovery Shift Engineer Name Role Phone Marlee Larson MD Primary Care Provider [phone] Encounter Details Date Type Department Care Team (Late st Contact Info) Description 06/21/2024 Orders Only [facility] [address] [place] [address] Provider, MD Sera Social History Tobacco Use Types Packs/Day Years [...] AM EDT documented as of this encounter Plan of Treatment Upcoming Encounters Date Type Department Care Team (Late st Contact Info) Description 08/06/2024 10:30 AM EDT Office Visit [facility] [address] [place] [address] Carloz Victor MD [address] [place] [address] documented as of this encounter Procedures Procedure Name Priority Date/Time Associated Diagnosis Comments CT ABD/PELVIS W/O + W/ IV CONTRAST Routine 06/18/2024 7:35 AM EST documented in this encounter Results * CT ABD/PELVIS W/O + W/ IV CONTRAST (06/18/2024 7:35 AM EST) Anatomical Region Laterality Modality Body, Pelvis, Abdomen Computed T omography us Historical Provider MD ENAMORADO CT PROCEDURES Final R esult documented in this encounter Visit Diagnoses Not on filedocumented in this encounter Additional Health Concerns Assessment Noted Time PHQ-9 Depression Total Score: 1 04/04/20 10:49 AM EST documented as of this encounter Care Teams Power And Recovery Shift Engineer Relationship Specialty Start Date End Date Marlee Larson MD [address] [place] [address] PCP - General Family Medicine 04/04/23 documented as of this encounter
[2024-07-14 10:06] LABS: MANUAL DIFF FLAG NO
[2024-07-14 10:23] LABS: Alanine Aminotransferase 21 U/L (0-40); Albumin Level 4.1 g/dL (3.5-5.0); Alkaline Phosphatase 58 U/L (39-117); Anion Gap 13 (12-20); Aspartate Amino Transferase 23 U/L (5-37); Bilirubin Direct 0.3 mg/dL (0.0-0.5); Bilirubin Total 0.8 mg/dL (0.0-1.0); Blood Urea Nitrogen 11 mg/dL (9-16); Calcium 9.6 mg/dL (8.4-10.2); Carbon Dioxide 27 mmol/L (22-29); Chloride 104 mmol/L (96-108); Creatinine Clr Calc Pharmacy 109.3; Estimated Glomerular Filt Rate > 60; Glucose Random 124 mg/dL (60-115); Lipase 12 U/L (8-78); Potassium 4.8 mmol/L (3.3-5.1); Sodium 139 mmol/L (135-145); Total Protein 7.7 g/dL (6.5-8.0)
[2024-07-14 10:30] LABS: Basophils Percent Auto 0.2 % (0-2); Eosinophils Percent Auto 0.1 % (0-4); Hematocrit 38.6 % (42.0-52.0); Hemoglobin 13.1 g/dl (14.0-18.0); Imm Gran Abs Auto 0.04 X10*3/uL (0.00-0.03); Imm Gran Pct Auto 0.4 % (0.0-0.4); Lymphocytes Absolute Auto 1.2 X10*3/uL (1.2-4.9); Lymphocytes Percent Auto 11.8 % (20-40); Mean Corpuscular HGB Conc 33.9 g/dl (31.0-36.0); Mean Corpuscular Hemoglobin 29.1 pg (27.0-33.0); Mean Corpuscular Volume 85.8 fL (80.0-98.0); Mean Platelet Volume 9.4 fL (9.4-12.4); Monocytes Absolute Auto 0.4 X10*3/uL (0.1-1.2); Monocytes Percent Auto 4.2 % (2-11); Neutrophils Absolute Auto 8.2 x10*3/uL (2.0-8.3); Neutrophils Percent Auto 83.3 % (45-73); Platelet Count 223 X10*3/uL (160-400); Red Cell Distribution Width 12.3 % (11.0-16.0); White Blood Count 9.8 X10*3/uL (4.8-10.8)
[2024-07-14] MEDS: ondansetron HCL 4 MG/2 ML VIAL IVPUSH ×2 (10:36→12:15)
[2024-07-14] MEDS: Morphine Sulfate 4 MG/ML CARTRIDGE IVPUSH (10:37)
[2024-07-14 10:43] LABS: Appearance Urine Clear; Color Urine Yellow; Glucose Urine UA Negative (Negative); Leukocyte Esterase Urine Trace (Negative); Nitrite Urine Negative (Negative); UMIC TRIGGER UACC YES; Urine Blood Negative (Negative); Urine Ketones Negative (Negative); Urine Protein Negative (Neg-Trace)
--- NOTE | 2024-07-14 10:43 | PC.NURSE ---
patient a&ox3, iv inserted, labs previously drawn, pt c/o 03/08 mid abd pain, pt medicated for nausea and pain per order, call nolasco within reach, plan of care ongoing
[2024-07-14 10:44] LABS: Influenza A PCR NEGATIVE (Negative); Influenza B PCR NEGATIVE (Negative); Resp Syncy Virus RNA Qual PCR NEGATIVE (Negative); SARS COV2 PCR INHOUSE NEGATIVE (Negative)
[2024-07-14 10:57] LABS: Bacteria Urine None Seen (None Seen); Hyaline Casts Urine 0-2 /LPF (0-2); RBC Urine 0-2 /HPF (0-2); Squamous Epithelial Cell Urine 0-2 /HPF (0-2); UACC Culture Trigger YES
[2024-07-14] MEDS: HYDROmorphone HCl 1 MG/ML SYRINGE IVPUSH (12:15)
--- NOTE | 2024-07-14 14:35 | PM.HPGS ---
History of Present Illness History of Present Illness Date of Service: 07/14/24 Chief complaint: stomach pain Narrative: Sumanth Felipe is a 54 year old male who presents with 1-2 day history of progressively worsening right upper quadrant/epigastric pain radiating around to his back. He had a similar episode of this in the past. Because of progression of symptoms, he presents to the emergency department for further evaluation. Patient otherwise tolerating a diet. He has regular bowel habits. Never been jaundiced before. Chart was reviewed and patient evaluated. LFTs within normal limits. Sonogram consistent with acute cholecystitis. [facility] Past Medical History Medical History (Updated 07/14/24 @ 14:42 by Hector Dillon MD) Morbid obesity Social History Social History Smoked in Last 30 Days: No Use of substances other than those prescribed or required for medical reasons: No Advance Directives: No Advance Directives Information Provided: Yes Do you have a plan to hurt others: No Plan Meds Allergies Allergy/AdvReac Type Severity Reaction Status Date / Time No Known Allergies Allergy Verified 07/14/24 09:15 Active Medications: Current Medications Cefazolin Sodium/Dextrose (Ancef) 2 gm in 50 mls @ 100 mls/hr IV PREOP ONE Stop: 07/14/24 15:03 Physical Exam Vital Signs: Vital Signs: Last Vital Signs Temp 98.2 F 07/14/24 09:11 Pulse 63 07/14/24 09:11 Resp 18 07/14/24 09:11 BP 114/81 07/14/24 09:11 Pulse Ox 98 07/14/24 09:11 O2 Del Method Room Air 07/14/24 09:11 BMI result Body Mass Index 46.6 Chest: Other: Chest breath sounds bilaterally, HS 1 in 2 GI: Other: Abdomen corpulent, marked right upper quadrant tenderness last positive Morales's sign. Results Results Labs: Short CBC 07/14/24 Range/Units 10:01 WBC 9.8 (4.8-10.8) X10*3/uL Hgb 13.1 L (14.0-18.0) g/dl Hct 38.6 L (42.0-52.0) % Plt Count 223 (160-400) X10*3/uL BMP 07/14/24 10:01 Sodium 139 Potassium 4.8 Chloride 104 Carbon Dioxide 27 BUN 11 Creatinine 0.98 Calcium 9.6 Liver Function 07/14/24 Range/Units 10:01 Total Bilirubin 0.8 (0.0-1.0) mg/dL Direct Bilirubin 0.3 (0.0-0.5) mg/dL AST 23 (5-37) U/L ALT 21 (0-40) U/L Alkaline Phosphatase 58 (39-117) U/L Albumin 4.1 (3.5-5.0) g/dL Urine 07/14/24 Range/Units 10:32 Urine Color Yellow Urine Appearance Clear Urine pH 8.0 (5.0-9.0) Ur Specific [place] 1.020 (1.005-1.025) Urine Protein Negative (Neg-Trace) mg/dL Urine Glucose (UA) Negative (Negative) mg/dL Assessment and Plan (1) Acute cholecystitis: Status: Acute Plan Risks, benefits, alternatives laparoscopic possible open cholecystectomy reviewed with the patient and included but not limited to bleeding, infection, numbness, pain, scarring, bowel or bile duct injury or leak and the patient wished to proceed. All questions answered. Consent signed. Arrangements will be made for this as an add on for this afternoon based on all were scheduling. Quality Stroke Does the patient have a stroke diagnosis?: No VTE Prior VTE?: No VTE Risk Level:: Surgical - low VTE Device Contraindication: N/A - Device Ordered VTE Drug Contraindication: Treatment Not Indicated Procedures Date of Service Date of Service: 07/14/24
--- NOTE | 2024-07-14 14:38 | P.CONAN_ITS ---
HPI - Anesthesia Eval Consult details Narrative: Acute cholecystitis [facility] Past Medical History Medical History (Updated 07/14/24 @ 14:43 by Hector Dillon MD) Morbid obesity Family History Family history of problems with anesthesia: No Surgical History History of Problems with Anesthesia: No Social History Social History Smoked in Last 30 Days: No Use of substances other than those prescribed or required for medical reasons: No Advance Directives: No Advance Directives Information Provided: Yes Do you have a plan to hurt others: No Plan Meds Allergies Allergy/AdvReac Type Severity Reaction Status Date / Time No Known Allergies Allergy Verified 07/14/24 09:15 Active Medications: Current Medications Cefazolin Sodium/Dextrose (Ancef) 2 gm in 50 mls @ 100 mls/hr IV PREOP ONE Stop: 07/14/24 15:03 Home Medications ?Medication ?Instructions ?Recorded ?Confirmed ?Last Taken ?Type buprenorphine 8 mg-naloxone 2 mg 2 film sublingual DAILY 07/14/24 07/14/24 07/13/24 History sublingual film Exam Height,Weight and Vital Signs: Height 5 ft 5 in Weight 127.006 kg Last Vital Signs Temp 98.2 F 07/14/24 09:11 Pulse 63 07/14/24 09:11 Resp 18 07/14/24 09:11 BP 114/81 07/14/24 09:11 Pulse Ox 98 07/14/24 09:11 O2 Del Method Room Air 07/14/24 09:11 Pertinent Lab Results Pertinent Lab Results: Laboratory Tests 07/14/24 07/14/24 10:01 10:32 WBC 9.8 RBC 4.50 L Hgb 13.1 L Hct 38.6 L MCV 85.8 MCH 29.1 MCHC 33.9 RDW 12.3 Plt Count 223 MPV 9.4 Immature Gran % (Auto) 0.4 Neut % (Auto) 83.3 H Lymph % (Auto) 11.8 L Dickson % (Auto) 4.2 Eos % (Auto) 0.1 Baso % (Auto) 0.2 Lymph # (Auto) 1.2 Dickson # (Auto) 0.4 Eos # (Auto) 0.0 Baso # (Auto) 0.0 Abs Immat Gran (auto) 0.04 H Absolute Neuts (auto) 8.2 Absolute Nucleated RBC 0.000 Nucleated RBC % (auto) 0.0 Sodium 139 Potassium 4.8 Chloride 104 Carbon Dioxide 27 Anion Gap 13 BUN 11 Creatinine 0.98 Estim Creat Clear Calc 109.3 Estimated GFR > 60 Random Glucose 124 H Calcium 9.6 Magnesium 2.0 Total Bilirubin 0.8 Direct Bilirubin 0.3 AST 23 ALT 21 Alkaline Phosphatase 58 Total Protein 7.7 Albumin 4.1 Lipase 12 Urine Color Yellow Urine Appearance Clear Urine pH 8.0 Ur Specific [place] 1.020 Urine Protein Negative Urine Glucose (UA) Negative Urine Ketones Negative Urine Blood Negative Urine Nitrite Negative Ur Leukocyte Esterase Trace H Urine RBC 0-2 Urine WBC 6-10 Ur Squamous Epith Cells 0-2 Urine Bacteria None Seen Hyaline Casts 0-2 Influenza Type A (PCR) NEGATIVE Influenza Type B (PCR) NEGATIVE RSV RNA Qual (PCR) NEGATIVE SARS-CoV-2 RNA (RT-PCR) NEGATIVE Airway Mallampati Class: II TM Dist: >3cm Neck ROM: Full Loose/Missing/Broken Teeth: No Heart: RRR Lungs: CTAB Assessment and Plan Assessment Anesthesia Assessment: Anesthesia Plan Discussed and Chart Reviewed Final Anesthetic Review Family History of Problems with Anesthesia: No History of Problems with Anesthesia: No NPO: Yes ASA Class: III and Emergency Final Preanesthetic Review: No Changes in Pt Med Stat, Meds/Allgs Chart Reviewed, Consent Obtained/Reviewed and Anes Risks/Benef Reviewed Patient Risk: Intermediate Procedure Risk: Intermediate Anesthetic Plan Anesthetic Plan: GA Disposition: Standard PACU
--- NOTE | 2024-07-14 15:11 | PHA.MEDREC ---
Addendum entered by Shelby Serra RPh 07/14/24 15:17: MED REC REVIEWED BY MONIQUE Original Note: Pharmacy Consult ? Medication Reconciliation Pharmacy has completed the medication reconciliation. Spoke with patient to confirm. He only took 1 film yesterday because he was not feeling well. He is not on BP meds, abx, or OTC meds.
[2024-07-14] MEDS: ceFAZolin Sodium/Dextrose,Iso 2 GM/50 ML PIGGYBACK IV (15:14)
--- NOTE | 2024-07-14 17:46 | P.OP_ITS ---
Operative Note Operative Note Date of Service: 07/14/24 Narrative: Preoperative diagnosis: [] Symptomatic gallbladder/acute cholecystitis Postop diagnosis: [] The same Procedure [] laparoscopic cholecystectomy Surgeon: [] Santana Glass Cleaning Machine Tender: [] Maurilio Type of Anesthesia: [] General Indication for surgery: [] Edematous, inflammed Gallbladder with dense omental adhesions to it. Moderately intrahepatic gallbladder. Massive corpulent abdomen Findings: [] Patient brought to the operating room, placed on operative table supine position, after an adequate level of general anesthesia was induced, the patient's abdomen was prepped and draped in usual sterile fashion. Using a supraumbilical curvilinear incision, Connolly technique was used to insufflate abdominal cavity to 15 mm of CO2. Upper midline and right subcostal ports were placed under direct laparoscopic view, and the patient placed in reverse Trendelenburg position, and tilted to the left. Findings were as noted above. Gallbladder was initially decompressed with an aspirating device because of its marked turgidity. Gallbladder was grasped using laparoscopic graspers and retracted superiorly and laterally. Dense omental adhesions were swept off the gallbladder and the hilum was approached. Cystic artery and cystic duct were each identified, circumferentially skeletonized, traced directly into the gallbladder, and critical view obtained. Each was clipped proximally x2, distally x1, and transected. The gallbladder which was moderately intrahepatic was then cauterized from the gallbladder fossa using Bovie. Specimen was placed in an Endo-Catch bag, a retrieved through the umbilical port. Abdominal cavity was copiously irrigated and secured hemostasis. All ports removed under direct laparoscopic view. Wounds were closed in the following manner; umbilical wound has it's fascia reapproximated using interrupted 0 Vicryl sutures. Skin wounds were closed using subcuticular 4-0 Vicryl sutures followed by Steri-Strips and sterile dressings. Wounds were infiltrated 0.5% Marcaine at completion. Sponge, needle, and instrument counts reported correct. Patient tolerated the procedure well and emerged from anesthesiain in stable condition. EBL minimal
[2024-07-14] MEDS: HYDROmorphone HCl 0.5 MG/0.5 ML SYRINGE IVPUSH ×2 (18:15→18:20)
[2024-07-14] MEDS: Ondansetron ODT 4 MG TAB.RAPDIS TRANSLINGU (18:48)
--- NOTE | 2024-07-15 13:28 | HO.POSTANES ---
Post Anesthesia Evaluation Post Anesthesia Evaluation Date of Service: 07/15/24 Anesthesia: General Endotracheal-GETA Mental Status: Awake Pain Control: Satisfactory Nausea/Vomiting: None Hydration: Adequate Anesthesia-Related Issues: No Anes. Related Issues
== END 2024-07-14 18:55 | disposition home or self-care (01) ==
LOC: HO.ED 14:43 → HO.SSS 14:45
PROVIDERS: Physician Assistant; Emergency Provider Emergency Medicine; PCP Family Medicine; Visit Provider Surgery
PROC: 0FT44ZZ Resection of Gallbladder, Percutaneous Endoscopic Approach (ICD-10-PCS; CPT 47562; principal; 2024-07-14 17:00)
DX: K80.00 Calculus of gallbladder with acute cholecystitis without obstruction (principal); K82.A1 Gangrene of gallbladder in cholecystitis; R10.13 Epigastric pain; R11.2 Nausea with vomiting, unspecified; E66.01 Morbid (severe) obesity due to excess calories; Z68.42 Body mass index [BMI] 45.0-49.9, adult; Z03.818 Encounter for observation for suspected exposure to other biological agents ruled out; Z79.899 Other long term (current) drug therapy
CPT/HCPCS: 47562; 0241U; 36415; 76705; 80048; 80076; 81001; 83690; 83735; 85025; 87086; 88304; 96374; 96375; 96376; 99285; J0690; J1100; J1171; J1885; J2003; J2270; J2405; J2704; J2795; J3010

== ENCOUNTER → 2024-07-14 09:24 | Outpatient (BNV) | payer OTHER, SELFPAY | PROVIDERS: Emergency Provider Emergency Medicine; PCP Family Medicine; Visit Provider Surgery | DX: K81.0 Acute cholecystitis (principal) | CPT/HCPCS: 47562; 99285 ==

== ENCOUNTER → 2024-07-14 09:30 | Outpatient (BNV) | payer OTHER, SELFPAY | PROVIDERS: Emergency Provider Emergency Medicine; PCP Family Medicine; Visit Provider Radiology Vascular & Interventional Radiology | DX: R10.13 Epigastric pain (principal) | CPT/HCPCS: 76705 ==

== ENCOUNTER 2024-07-24 09:42 | Outpatient (AMB) | payer OTHER, SELFPAY ==
--- NOTE | 2024-07-24 09:42 | MHC.OFFVIS ---
Intake Visit Reasons: post op GB Intake Note: Patient here s/p laparoscopic cholecystectomy. Reports incision healing well. Patient c/o: [facility] fell off yesterday. No longer taking rx pain meds but taking ibuprofen as needed. Surgery: 07-14-2024 Candle Molder Required: No Accompanied by: Self / Same As Patient Allergies No Known Allergies Allergy (Verified 07/24/24 09:42) HPI Comments Details: Patient was with a significant other for follow-up. Status post laparoscopic cholecystectomy. He is doing well. He is tolerating a diet. Having regular bowel habits. He is increasing his activity level. Incisional discomfort is improving. [facility] Medical History (Updated 07/22/24 @ 00:02 by Jenifer Mena) Morbid obesity Surgical History (Updated 07/24/24 @ 10:01 by Hector Dillon MD) Hx laparoscopic cholecystectomy (07/14/14) Physical Exam Eyes Other: Anicteric GI Other: Abdomen is soft, benign. All wounds clean dry and intact. Periumbilical ecchymosis but otherwise healing well. Assessment & Plan Assessment & Plan (1) Status post laparoscopic cholecystectomy: Code(s): Z90.49 - Acquired absence of other specified parts of digestive tract Category: Medical Plan Patient was doing well. 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 and will otherwise follow-up p.r.n.. All questions answered. Patient will otherwise follow-up p.r.n. Coding Level of Care Code Global (02098) Diagnoses Status post laparoscopic cholecystectomy Z90.49
--- OUTSIDE RECORDS SUMMARY | 2024-07-24 10:58 | XMS_ITS | Clinical Summary ---
Author Organization [address] [facility] Address [address] [place] [address] Phone Care Team Providers Care Media Account Executive Name Role Phone Unavailable Primary Care Provider Unavailabl e Encounters Date Type Department Care Team Description 06/12/2024 Lab Requisition [facility] - Main Lab [address] [facility] [facility] [place] [address] Abiodun Magaña, ISA Gross hematuria [...] 02/23/2022 Zoster Vaccines (1 of 2) 02/23/2022 COVID-19 Vaccine ( - 2023-2 5 season) [...] grade urothelial carcinoma. 06/20/2024 1:26 PM EST [facility] Clinical Information Gross hematuria R31.0 Urine cytology 06/20/2024 1:26 PM EST [facility] Gross Description A. Urine, Voided, ([id number]): Received is one ThinPrep slide for cytology. 06/20/2024 1:26 PM EST [facility] Disclaimer Unless otherwise specified, all tissue is 10% NB formalin fixed and paraffin embedded. Technical pathology services provided by [facility] at [address] [place] [address] [address], [place] [address] (CLIA #[id number]/S stephanie Zarate MD, Lab Analyst) 06/20/2024 1:26 PM EST [facility] Tissue Urine specimen from urethra / Unknown 06/05/2024 06/12/2024 12:15 PM EST us Abiodun MOSS LAB PATHOLOGY ORDERABLES Final Result [facility] [address] [place] [address], from Last 3 Months
--- OUTSIDE RECORDS SUMMARY | 2024-07-24 10:58 | XMS_ITS | Encounter Summary ---
Author Organization [employer] Address [address] [place] [address] Care Team Providers Care Licensed Pesticide Applicator Name Role Phone Marlee Larson MD Primary Care Provider [phone] Reason for Visit * Reason Onset Date Comments Appointment Request 01/06/2024 Encounter Details Date Type Department Care Team ([facility] st Contact Info) Description 01/06/2024 Telephone [facility] MED[facility] [address] [place] [address] Marlee Larson MD [address] [place], [place] [id number] Appointment Request Social History Tobacco Use Types [...] Description 08/06/2024 10:30 AM EDT Office Visit [facility] [address] [place] [address] Carloz Victor MD [address] [place] [address] documented as of this encounter Visit Diagnoses Not on filedocumented in this encounter Additional Health Concerns Assessment Noted Time PHQ-9 Depression Total Score: 1 04/04/20 10:49 AM EST documented as of this encounter Care Teams Licensed Pesticide Applicator Relationship Specialty Start Date End Date Marlee Larson MD [address] [place] [address] PCP - General Family Medicine 04/04/23 documented as of this encounter
--- OUTSIDE RECORDS SUMMARY | 2024-07-24 10:58 | XMS_ITS | Encounter Summary ---
Author Organization [employer] Address [address] [place] [address] Care Team Providers Care Manager Of Warehouse Name Role Phone Unavailable Primary Care Provider Unavailabl e Encounter Details Date Type Department Care Team (Late st Contact Info) Description 06/12/2024 Lab Requisition [facility] - Main Lab [address] [facility] [place] [address] Abiodun Magaña PA [address] [facility] [address] [place] [address] Gross hematuria Social History Tobacco [...] grade urothelial carcinoma. 06/20/2024 1:26 PM EST [facility] Clinical Information Gross hematuria R31.0 Urine cytology 06/20/2024 1:26 PM EST [facility] Gross Description A. Urine, Voided, ([id number]): Received is one ThinPrep slide for cytology. 06/20/2024 1:26 PM EST [facility] Disclaimer Unless otherwise specified, all tissue is 10% NB formalin fixed and paraffin embedded. Technical pathology services provided by [facility] at [address] [place] [address] (CLIA #[id number]/S stephanie Zarate MD, Timber Bucker) 06/20/2024 1:26 PM EST [facility] Tissue Urine specimen from urethra / Unknown 06/05/2024 06/12/2024 12:15 PM EST us Abiodun Magaña PA LAB PATHOLOGY ORDERABLES Final Result [facility] [address] [place] [address], documented in this encounter Visit Diagnoses Diagnosis Gross hematuria documented in this encounter
--- OUTSIDE RECORDS SUMMARY | 2024-07-24 10:58 | XMS_ITS | Encounter Summary ---
Author Organization [facility] [facility] Address [address] [place] [address] Care Team Providers Care Monotype Caster Name Role Phone Marlee Larson MD Primary Care Provider [phone] Encounter Details Date Type Department Care Team (Late st Contact Info) Description 07/14/2024 Orders Only GENERIC EXTERNAL DATA DEPARTMENT Provider, Generic External Data Social History Tobacco Use Types Packs/Day Years [...] Description 08/06/2024 10:30 AM EDT Office Visit [facility] [address] [place] [address] Carloz Victor MD [address] [place] [address] documented as of this encounter Procedures Procedure Name Priority Date/Time Associated Diagnosis Comments GROSS AND MICROSCOPIC LEVEL 3 Routine 07/14/2024 5:58 PM EST URINALYSIS, COMPLETE, WITH REFLEX TO CULTURE Routine 07/14/2024 10:32 AM EST US ABDOMEN LIMITED Routine 07/14/2024 10 :24 AM EST SARS COV2/INFLUENZA A/B AND RSV RNA QL NAAT Routine 07/14/2024 10:01 AM EST CBC WITH AUTO DIFFERENTIAL Routine 07/14/2024 10:01 AM EST MAGNESIUM Routine 07/14/2024 10:01 AM EST LIPASE Routine 07/14/2024 10:01 AM EST HEPATIC FUNCTION PANEL Routine 07/14/2024 10:01 AM EST BASIC METABOLIC PANEL Routine 07/14/2024 10:01 AM EST CULTURE, URINE, ROUTINE Routine 07/14/2024 12:00 AM EST documented in this encounter Results * Gross and Microscopic Level 3 (07/14/2024 5:58 PM EST) 07/14/2024 5:58 PM EST 07/17/2024 8:38 AM EST Narrative [facility] - 07/18/2024 2:21 PM EST ----- ------- Name: Sumanth Felipe ?Age/Sex: 54/M ? : 1970 Unit#: [id number] ?? Attend Dr: Hector Dillon MD ?Re07/14/24 ?Status: DEP SDC ? Location: HO.SSS ?Disch: ? ----- ------- SPEC : [id number] ?RECD: 07/17/24-837 ? STATUS: ??SOUT ? REQ NUM: [id number] ? JENN: 07/14/24-678 ? SUBM DR: Hector Dillon MD ? ENTERED: ??07/17/248888 ?SP TYPE: Surgical ? OTHR DR: Marlee Larson MD ? ORDERED: ??Gross Micro L3 ? Diagnosis ?? Gallbladder, cholecystectomy: ??Acute gangrenous cholecystitis with cholelithiasis. ?Clinical History Pre-Op Dx: ??Stomach pain Post-Op Dx: Cholelithiasis ?Microscopic Description Microscopic sections reviewed. ? Material Received ?? Gallbladder ? Gross Description Received in formalin labeled ?gallbladder? is a 9.5 x 4.0 x 3.5 cm smooth and shaggy, intact, masters-blue gallbladder resected in continuity with 0.5 cm of patent cystic duct which exudes black bile. ??Upon opening the gallbladder contains brown sludge, black bile and a few hard brown-black choleliths ranging from 0.2 to 3.0 cm greatest dimension. ??Upon opening the mucosa is velvety, santos-green. ??On sectioning the wall measures up to 0.35 cm in thickness and is bile-stained santos-green. ??Sheep Farmer sections are submitted in a cassette labeled A1 to include the margin of resection of the cystic duct. CEDS Copies To: ?? Hector Dillon MD ?? [facility] ?? [address] ?? [place] [address] ?? [phone] ?? [email or web address] ?? Marlee Larson MD ?? [address] ?? [place] [address] ?? [phone] ? CONTINUED ON NEXT PAGE ----- ------- Name: Sumanth Felipe ?Age/Sex: 54/M ? : 1970 Unit#: [id number] ?? Attend Dr: Hector Dillon MD ?Re07/14/24 ?Status: DEP SDC ? Location: HO.SSS ?Disch: ? ----- ------- SPEC : [id number] ?RECD: 07/17/24 ? STATUS: ??SOUT ? REQ NUM: [id number] ? JENN: 07/14/24-1757 ? SUBM DR: Hector Dillon MD ? ENTERED: ??07/17/24 ?SP TYPE: Surgical ? OTHR DR: Marlee Larson MD ? ORDERED: ??Gross Micro L3 ? ----- ------- Signed (signature on file) Jackie Watts 07/18/241420 ? ----- ------- ? END OF REPORT ? us Generic External Data Provider LAB CYTOLOGY ORDE DONNIE Final Result [facility] [address] [place] [address] [phone] * (ABNORMAL) Urinalysis, Complete, with Reflex to Culture (07/14/2024 10:32 AM EST) Color Urine Yellow [facility] Appearance Urine Clear [facility] PH 8.0 5.0 - 9.0 [facility] Glucose Urine UA Negative Negative mg/dL [facility] Urine Blood Negative Negative [facility] Specific [place] - Urine 1.020 1.005 - 1.025 [facility] Urine Protein Negative Neg-Trace mg/dL [facility] Urine Ketones Negative Negative mg/dL [facility] Nitrite Urine Negative Negative [facility] Leukocyte Esterase Urine Trace(A) Negative [facility] RBC Urine 0-2 0 - 2 /HPF [facility] Urine WBC 6-10 0 - 5 /HPF [facility] Urine Squamous Epithelial Cell 0-2 0 - 2 /HPF [facility] Urine Bacteria None Seen None Seen [facility] Hyaline Casts, Urine 0-2 0 - 2 /LPF [facility] 07/14/2024 10:3 2 AM EST 07/14/2024 10:38 AM EST Narrative [facility] - 07/14/2024 10:57 AM EST [id number], Clean Catch us Generic External Data Provider LAB URINE ORDERAB LES Final Result [facility] [address] [place] [address] [phone] * US Abdomen Limited (07/14/2024 10:24 AM EST) Anatomical Region Laterality Modality Abdomen Ultrasound 07/14/2024 10:2 4 AM EST Narrative 07/14/2024 10:27 AM EST ? [facility] ?[address] ?[place] [address] ? Ultrasound Report ? Signed ? Patient: Sumanth Felipe ?MR#: [id number] ?? [id number] ? : 1970 ?Acct:[id number] ? Age/Sex: 54 / M ?ADM Date: 02/15/25 ? Loc: HO.ED ? Attending Dr: ? Ordering Physician: Jolynn Davis ?? Date of Service: 07/14/24 ?? Procedure(s): US abdomen limited ?? Accession Number(s): [id number] ? cc: Jolynn Davis; Marlee Larson MD ? CLINICAL HISTORY: epigastric abd pain, RUQ pain ? US abdomen limited ? Comparison: None ? Findings: ?? The pancreas is not well-visualized. ?? The aorta and inferior vena cava are normal caliber. ? The liver is increased in size and echotexture, measuring up to 19.5 cm.. ?? There is no intrahepatic bile duct dilatation. ?? The common duct is 4 mm in diameter. ?? Gallstones are present. The gallbladder wall is borderline thickened 3 mm ?? and reportedly there is a positive sonographic Morales's. ?? The main portal vein is antegrade. ? The right kidney is 11.7 cm in length. ?? No ascites. ? IMPRESSION: ? Gallstones are present. There is borderline gallbladder wall thickening ?? and reportedly a positive sonographic Morales's. Findings may reflect early ?? acute calculus cholecystitis. ? Hepatomegaly and hepatic steatosis. ? This document has been electronically signed by: Denis Arellano MD on ?? 07/14/2024 10:24:58 ? Dictated By: ?Denis Arellano MD ? Signed By: ?<Electronically signed by Denis Arellano MD in OV> ? 07/14/24 1026 ? DD/ 1024 ? TD/TT: 07/14/24 1024 ? Waiter/Waitress First Class: ? Procedure Note Reena Camacho - 07/14/2024 [place] [address] Ultrasound Report Signed Patient: Sumanth Felipe PMR#: [id number] : 1970Acct:[id number] Age/Sex: 54 / MADM Date: 07/14/24 Loc: HO.ED Attending Dr: Ordering Physician: Jolynn Davis Date of Service: 07/14/24 Procedure(s): US abdomen limited Accession Number(s): [id number] cc: Jolynn Davis; Marlee Larson MD CLINICAL HISTORY: epigastric abd pain, RUQ pain US abdomen limited Comparison: None Findings: The pancreas is not well-visualized. The aorta and inferior vena cava are normal caliber. The liver is increased in size and echotexture, measuring up to 19.5 cm.. There is no intrahepatic bile duct dilatation. The common duct is 4 mm in diameter. Gallstones are present. The gallbladder wall is borderline thickened 3 mm and reportedly there is a positive sonographic Morales's. The main portal vein is antegrade. The right kidney is 11.7 cm in length. No ascites. IMPRESSION: Gallstones are present. There is borderline gallbladder wall thickening and reportedly a positive sonographic Morales's. Findings may reflect early acute calculus cholecystitis. Hepatomegaly and hepatic steatosis. This document has been electronically signed by: Denis Arellano MD on 07/14/2024 10:24:58 Dictated By: Denis Arellano MD Signed By: <Electronically signed by Denis Arellano MD in OV> 07/14/24 1026 DD/ 1024 TD/TT: 07/14/24 1024 Waiter/Waitress First Class: [facility] External Provider IMG US PROCEDURES Edited Result - Final * SARS-CoV-2 RNA, Influenza A/B, and RSV RNA, Ql NAAT (07/14/2024 10:01 AM EST) Influenza A PCR NEGATIVE Negative [facility] Influenza B PCR NEGATIVE Negative [facility] Resp Syncy Virus RNA Qual PCR NEGATIVE Negative [facility] SARS COV2 PCR NEGATIVE Negative [facility] Comment:All test results mus t be correlated with clinical findings.Negative results do not preclude SARS-CoV2, influenza Avirus, influenza B virus and/or RSV infectionand should not be used as the sole basis for treatment orother patient management decisions. Negative results must becombined with clinical observations, patient history, andepidemiological information.This test has not been evaluated for monitoring treatment ofinfection.This test has been authorized by the FDA under an EmergencyUse Authorization (EUA) for use by authorized laboratories.Testing performed on the [employer] GeneXpert utilizingreal-time RT-PCR.All SARS CoV2 and positive influenza A/B results arereported to [facility]. 07/14/2024 10:0 1 AM EST 07/14/2024 10:05 AM EST us Generic External Data Provider LAB MICROBIOLOGY - GENERAL ORDERABLES Final Result [facility] [address], [place] [phone] * (ABNORMAL) CBC auto differential (07/14/2024 10:01 AM EST) White Blood Count 9.8 4.8 - 10.8 X10*3/uL [facility] Red Blood Count 4.50(L) 4.60 - 5.80 X10*6/uL [facility] Hemoglobin 13.1(L) 14.0 - 18.0 g/dl [facility] Hematocrit 38.6(L) 42.0 - 52.0 % [facility] Mean Corpuscular Volume 85.8 80.0 - 98.0 fL [facility] Mean Corpuscular Hemoglobin 29.1 27.0 - 33.0 pg [facility] Mean Corpuscular HGB Conc 33.9 31.0 - 36.0 g/dl [facility] Red Cell Distribution Width 12.3 11.0 - 16.0 % [facility] Platelet Count 223 160 - 400 X10*3/uL [facility] Mean Platelet Volume 9.4 9.4 - 12.4 fL [facility] Neutrophils Percent Auto 83.3(H) 45 - 73 % [facility] Imm Gran Pct Auto 0.4 0.0 - 0.4 % [facility] Lymphocytes Percent Auto 11.8(L) 20 - 40 % [facility] Monocytes Percent Auto 4.2 2 - 11 % [facility] Eosinophils Percent Auto 0.1 0 - 4 % [facility] Basophils Percent Auto 0.2 0 - 2 % [facility] NRBC Pct Auto 0.0 0.0 - 0.2 /100WBC [facility] Neutrophils Absolute Auto 8.2 2.0 - 8.3 x10*3/uL [facility] Imm Gran Abs Auto 0.04(H) 0.00 - 0.03 X10*3/uL [facility] Lymphocytes Absolute Auto 1.2 1.2 - 4.9 X10*3/uL [facility] Monocytes Absolute Auto 0.4 0.1 - 1.2 X10*3/uL [facility] Eosinophils Absolute Auto 0.0 0.0 - 0.4 X10*3/uL [facility] Basophils Absolute Auto 0.0 0.0 - 0.2 X10*3/uL [facility] NRBC Abs Auto 0.000 0.0 - 0.012 X10*3/uL [facility] 07/14/2024 10:0 1 AM EST 07/14/2024 10:05 AM EST us Generic External Data Provider LAB BLOOD ORDERAB LES Final Result Performing Organization Address [facility]/ZIP Co de Phone Number [facility] [address] [place] [phone] * Lipase (07/14/2024 10:01 AM EST) Lipase 12 8 - 78 U/L [facility] 07/14/2024 10:0 1 AM EST 07/14/2024 10:05 AM EST us Generic External Data Provider LAB BLOOD ORDERAB LES Final Result Performing Organization Address [facility] Co de Phone Number [facility] [address] [place] [phone] * Magnesium (07/14/2024 10:01 AM EST) Magnesium 2.0 1.6 - 2.6 mg/dL [facility] 07/14/2024 10:0 1 AM EST 07/14/2024 10:05 AM EST us Generic External Data Provider LAB BLOOD ORDERAB LES Final Result Performing Organization Address [facility]/ZIP Co de Phone Number [facility] [address] [place] [phone] * (ABNORMAL) Basic Metabolic Panel (07/14/2024 10:01 AM EST) Sodium 139 135 - 145 mmol/L [facility] Potassium 4.8 3.3 - 5.1 mmol/L [facility] Chloride 104 96 - 108 mmol/L [facility] Carbon Dioxide 27 22 - 29 mmol/L [facility] Anion Gap 13 12 - 20 [facility] Urea Nitrogen (BUN) 11 9 - 16 mg/dL [facility] Creatinine, Serum 0.98 0.5 - 1.4 mg/dL [facility] Creatinine Clr Calc Pharmacy 109.3 [facility] Comment:eGFR (calculated fro m the MDRD study equation) and eCrCl(calculated from the Cockcroft-Gault equation) are based ondifferent parameters and may not yield comparable results.If eCrCl result is absurd, please check patient'sheight/weight. Estimated Glomerular Filt Rate >60 [facility] Comment:Chronic Kidney Disea se: Estimated GFR < 60 mL/min/1.68l6Negxaw Kidney Disease: Estimated GFR < 15 mL/min/1.73m2 Glucose 124(H) 60 - 115 mg/dL [facility] Calcium 9.6 8.4 - 10.2 mg/dL [facility] 07/14/2024 10:0 1 AM EST 07/14/2024 10:05 AM EST us Generic External Data Provider LAB BLOOD ORDERAB LES Final Result [facility] [address] [place] [phone] * Hepatic Function Panel (07/14/2024 10:01 AM EST) Bilirubin, Total 0.8 0.0 - 1.0 mg/dL [facility] Bilirubin, Direct 0.3 0.0 - 0.5 mg/dL [facility] Aspartate Amino Transferase 23 5 - 37 U/L [facility] Alanine Aminotransferase 21 0 - 40 U/L [facility] Total Protein 7.7 6.5 - 8.0 g/dL [facility] Albumin Level 4.1 3.5 - 5.0 g/dL [facility] Alkaline Phosphatase 58 39 - 117 U/L [facility] 07/14/2024 10:0 1 AM EST 07/14/2024 10:05 AM EST Generic External Data Provider LAB BLOOD ORDERAB LES Final Result Performing Organization Address [facility]/ZIP Co de Phone Number [facility] [address] [place] [phone] * Culture, Urine, Routine (07/14/2024 12:00 AM EST) Urine Urine specimen obtained by clean catch procedure / Unknown 07/14/2024 07/14/2024 Comment:UACC Narrative [facility] - 07/15/2024 8:20 AM EST Urine Culture No growth. Specimen Source: Urine clean catch Generic External Data Provider LAB MICROBIOLOGY - GENERAL ORDERABLES Final Result Performing Organization Address [facility] Co de Phone Number [facility] [address] [place] [phone] documented in this encounter Visit Diagnoses Not on filedocumented in this encounter Additional Health Concerns Assessment Noted Time PHQ-9 Depression Total Score: 1 04/04/20 23 10:49 AM EST documented as of this encounter Care Teams Monotype Caster Relationship Specialty Start Date End Date Marlee Larson MD [address] [place] [phone] PCP - General Family Medicine 04/04/23 documented as of this encounter
--- OUTSIDE RECORDS SUMMARY | 2024-07-24 10:59 | XMS_ITS | Clinical Summary ---
Author Organization [employer] Address [address] [facility] [address] [place] [address] Care Team Providers Care Power Washer Name Role Phone Marlee Larson MD Primary Care Provider [phone] Allergies No known active allergies Medications * [...] Center 04/11/2023 11:15 AM Marlee Larson MD [facility] 04/18/2023 10:30 AM Carloz Victor MD [facility] Class 3 severe obesity with body mass [...] recommended reduction of 20-30% of maintenance calories; stopper maker helper referral offered. Recommended to decrease soda and [...] time. Sumanth lives alone, works f/t at [employer]. He reported he was a victim of [...] seek treatment PLAN: 1. Follow up with [facility] [place]: Recommended for follow-up: during OBAT appts 2. [...] time. Sumanth lives alone, works f/t at [employer]. He reported he was a victim of [...] seek treatment PLAN: 1. Follow up with [facility] [place]: Recommended for follow-up: during OBAT appts 2. Patient goal is to engage in MH services 3. Behavioral Recommendations a. Ind. Therapy b. Med. Management c. Use of coping skills d. IB follow up during his OBAT appts for extra support. Encounters Date Type Department Care Team Description 07/14/2024 Orders Only GENERIC EXTERNAL DATA DEPARTMENT Provider, Generic External Data 06/21/2024 Orders Only [facility] [address] [place] [address] Provider, MD Sera 06/11/2024 9:45 AM EST Office Visit [facility] MED & PEDS [address] [place] [address] Carloz Victor MD Uncomplicated opioid dependence (CMS/HCC) (Primary Dx) 06/11/2024 Travel 06/05/2024 Refill [facility] MEDICINE [address] [place] [address] Kirti Turner, ZE Uncomplicated opioid dependence (CMS/HCC) 06/04/2024 Travel from Last 3 Months Immunizations Name [...] is your housing situation today? I have lichaheri currie 03/28/[address] you [...] 08/06/2024 10:30 AM EDT Office Visit [facility] PED[facility] [address] [place] [address] Carloz Victor MD [address] [place] [address] Health Maintenance Due Date Last Done Comments [...] LIMITED Routine 07/14/2024 10 :24 AM EST CBC WITH AUTO DIFFERENTIAL Routine 07/14/2024 10:01 AM EST LIPASE Routine 07/14/2024 10:01 AM EST MAGNESIUM Routine 07/14/2024 10:01 AM EST BASIC METABOLIC PANEL Routine 07/14/2024 10:01 AM EST HEPATIC FUNCTION PANEL Routine 07/14/2024 10:01 AM EST SARS COV2/INFLUENZA A/B AND RSV RNA QL NAAT Routine 07/14/2024 10:01 AM EST CULTURE, URINE, ROUTINE Routine 07/14/2024 12:[address] ABD/PELVIS W/O + W/ IV CONTRAST Routine 06/18/2024 7:35 AM EST POCT EMMETT-14 URINE DRUG SCREEN Routine 06/11/2024 9:55 AM EST Uncomplicated opioid dependence (CMS/HCC) LIPID PANEL, STANDARD Routine 06/23/2023 4:15 PM EST Class 3 severe obesity with body mass index (BMI) of 45.0 to 49.9 in adult, unspecified obesity type, unspecified whether serious comorbidity present (CMS/HCC) HEPATITIS C ANTIBODY Routine 12/13/2022 11:36 AM EDT from Last 3 Months or Most Recently Relevant to Health Maintenance Results * Gross and Microscopic Level 3 (07/14/2024 5:58 PM EST) 07/14/2024 5:58 PM EST 07/17/2024 8:38 AM EST [facility]S - 07/18/2024 2:21 PM EST ----- ------- Name: Sumanth Felipe ?Age/Sex: 54/M ? : 1970 Unit#: [id number] ?? Attend Dr: Hector Dillon MD ?Re07/14/24 ?Status: DEP SDC ? Location: HO.SSS ?Disch: ? ----- ------- SPEC : [id number] ?RECD: 07/17/24 ? STATUS: ??SOUT ? REQ NUM: [id number] ? JENN: 07/14/24-1757 ? SUBM DR: Hector [...] cm in thickness and is bile-stained santos-green. ??Physical Anthropologist sections are submitted in a cassette labeled A1 to include the margin of resection of the cystic duct. CEDS Copies To: ?? Hector Dillon MD ?? [facility] General Surgeons ?? [address] ?? [place] [address] ?? [phone] ?? [email or web address] ?? Marlee Larson MD ?? [address] ?? [place] [address] ?? [phone] ? CONTINUED ON NEXT PAGE ----- ------- Name: Sumanth Felipe ?Age/Sex: 54/M ? : 1970 Unit#: [id number] ?? Attend Dr: Hector Dillon MD ?Re07/14/24 ?Status: DEP SDC ? Location: HO.SSS ?Disch: ? ----- ------- SPEC : [id number] ?RECD: 07/17/24 ? STATUS: ??SOUT ? REQ NUM: [id number] ? JENN: 07/14/24 ? SUBM DR: Hector Dillon MD ? ENTERED: ??07/17/24 ?SP TYPE: Surgical ? OTHR DR: Marlee Larson MD ? ORDERED: ??Gross Micro L3 ? ----- ------- Signed (signature on file) Jackie Mac 07/18/24 1421 ? ----- ------- ? END OF REPORT ? us Generic External Data Provider LAB CYTOLOGY JULIUS FIELDS Final Result [facility] [address] [place] [address] [phone] * (ABNORMAL) Urinalysis, Complete, with Reflex to Culture (07/14/2024 10:32 AM EST) Color Urine Yellow [facility] Appearance Urine Clear [facility] PH 8.0 5.0 - 9.0 [facility] Glucose Urine UA Negative Negative mg/dL [facility] Urine Blood Negative Negative [facility] Specific [place] - Urine 1.020 1.005 - 1.025 [facility] Urine Protein Negative Neg-Trace mg/dL [facility] Urine Ketones Negative Negative mg/dL [facility] Nitrite Urine Negative Negative [facility] Leukocyte Esterase Urine Trace(A) Negative [facility] RBC Urine 0-2 0 - 2 /HPF [facility] Urine WBC 6-10 0 - 5 /HPF [facility] Urine Squamous Epithelial Cell 0-2 0 - 2 /HPF [facility] Urine Bacteria None Seen None Seen [facility] Hyaline Casts, Urine 0-2 0 - 2 /LPF [facility] 07/14/2024 10:3 2 AM EST 07/14/2024 10:38 AM EST Narrative [facility] - 07/14/2024 10:57 AM EST [id number], Clean Catch us Generic External Data Provider LAB URINE ORDERAB LES Final Result [facility] [address] [place] [address] [phone] * US Abdomen Limited (07/14/2024 10:24 AM EST) Anatomical Region Laterality Modality Abdomen Ultrasound 07/14/2024 10:2 4 AM EST Narrative 07/14/2024 10:27 AM EST ? [facility] ?[address] ?[place] [address] ? Ultrasound Report ? Signed ? Patient: Sumanth Felipe P ?MR#: [id number] ?? [id number] ? : 1970 ?Acct:[id number] ? Age/Sex: 54 / M ?ADM Date: 07/14/24 ? Loc: HO.ED ? Attending Dr: ? Ordering Physician: Jolynn Davis ?? Date of Service: 07/14/24 ?? Procedure(s): US abdomen limited ?? Accession Number(s): [id number] ? cc: Jolynn Davis; Marlee Larson MD [...] DD/ 1024 ? TD/TT: 07/14/24 1024 ? Otter Trawler Boatswain: ? Procedure Note Donotuseinterpreter, Image - 07/14/[address] [address] Ultrasound Report Signed Patient: Sumanth Felipe PMR#: [id number] : 1970Acct:[id number] Age/Sex: 54 / MADM Date: 07/14/24 Loc: HO.ED Attending Dr: Ordering Physician: Jolynn Davis Date of Service: 07/14/24 Procedure(s): US abdomen limited Accession Number(s): [id number] cc: Jolynn Davis; Marlee Larson MD CLINICAL [...] 07/14/24 1026 DD/ 1024 TD/TT: 07/14/24 1024 Otter Trawler Boatswain: [facility] External Provider IMG US PROCEDURES Edited Result - Final * SARS-CoV-2 RNA, Influenza A/B, and RSV RNA, Ql NAAT (07/14/2024 10:01 AM EST) Influenza A PCR NEGATIVE Negative [facility] Influenza B PCR NEGATIVE Negative [facility] Resp Syncy Virus RNA Qual PCR NEGATIVE Negative [facility] SARS COV2 PCR NEGATIVE Negative [facility] Comment:All test results mus t be [...] use by authorized laboratories.Testing performed on the [employer] GeneXpert utilizingreal-time RT-PCR.All SARS CoV2 and positive influenza A/B results arereported to [facility]. 07/14/2024 10:0 1 AM EST 07/14/2024 10:05 AM EST Generic External Data Provider LAB MICROBIOLOGY - GENERAL ORDERABLES Final Result [facility] [address] [place] [phone] * (ABNORMAL) CBC auto differential (07/14/2024 10:01 AM EST) White Blood Count 9.8 4.8 - 10.8 X10*3/uL [facility] Red Blood Count 4.50(L) 4.60 - 5.80 X10*6/uL [facility] Hemoglobin 13.1(L) 14.0 - 18.0 g/dl [facility] Hematocrit 38.6(L) 42.0 - 52.0 % [facility] Mean Corpuscular Volume 85.8 80.0 - 98.0 fL [facility] Mean Corpuscular Hemoglobin 29.1 27.0 - 33.0 pg [facility] Mean Corpuscular HGB Conc 33.9 31.0 - 36.0 g/dl [facility] Red Cell Distribution Width 12.3 11.0 - 16.0 % [facility] Platelet Count 223 160 - 400 X10*3/uL [facility] Mean Platelet Volume 9.4 9.4 - 12.4 fL [facility] Neutrophils Percent Auto 83.3(H) 45 - 73 % [facility] Imm Gran Pct Auto 0.4 0.0 - 0.4 % [facility] Lymphocytes Percent Auto 11.8(L) 20 - 40 % [facility] Monocytes Percent Auto 4.2 2 - 11 % [facility] Eosinophils Percent Auto 0.1 0 - 4 % [facility] Basophils Percent Auto 0.2 0 - 2 % [facility] NRBC Pct Auto 0.0 0.0 - 0.2 /100WBC [facility] Neutrophils Absolute Auto 8.2 2.0 - 8.3 x10*3/uL [facility] Imm Gran Abs Auto 0.04(H) 0.00 - 0.03 X10*3/uL [facility] Lymphocytes Absolute Auto 1.2 1.2 - 4.9 X10*3/uL [facility] Monocytes Absolute Auto 0.4 0.1 - 1.2 X10*3/uL [facility] Eosinophils Absolute Auto 0.0 0.0 - 0.4 X10*3/uL [facility] Basophils Absolute Auto 0.0 0.0 - 0.2 X10*3/uL [facility] NRBC Abs Auto 0.000 0.0 - 0.012 X10*3/uL [facility] 07/14/2024 10:0 1 AM EST 07/14/2024 10:05 AM EST us Generic External Data Provider LAB BLOOD ORDERAB LES Final Result Performing Organization Address [facility]/ZIP Co de Phone Number [facility] [address] [place] [phone] * Magnesium (07/14/2024 10:01 AM EST) Magnesium 2.0 1.6 - 2.6 mg/dL [facility] 07/14/2024 10:0 1 AM EST 07/14/2024 10:05 AM EST us Generic External Data Provider LAB BLOOD ORDERAB LES Final Result Performing Organization Address [facility] Co de Phone Number [facility] [address] [place] [phone] * Lipase (07/14/2024 10:01 AM EST) Lipase 12 8 - 78 U/L [facility] 07/14/2024 10:0 1 AM EST 07/14/2024 10:05 AM EST us Generic External Data Provider LAB BLOOD ORDERAB LES Final Result Performing Organization Address [facility] Co de Phone Number [facility] [address] [place] [phone] * Hepatic Function Panel (07/14/2024 10:01 AM EST) Bilirubin, Total 0.8 0.0 - 1.0 mg/dL [facility] Bilirubin, Direct 0.3 0.0 - 0.5 mg/dL [facility] Aspartate Amino Transferase 23 5 - 37 U/L [facility] Alanine Aminotransferase 21 0 - 40 U/L [facility] Total Protein 7.7 6.5 - 8.0 g/dL [facility] Albumin Level 4.1 3.5 - 5.0 g/dL [facility] Alkaline Phosphatase 58 39 - 117 U/L [facility] 07/14/2024 10:0 1 AM EST 07/14/2024 10:05 AM EST us Generic External Data Provider LAB BLOOD ORDERAB LES Final Result [facility] [address] [place] [address] [phone] * (ABNORMAL) Basic Metabolic Panel (07/14/2024 10:01 AM EST) Sodium 139 135 - 145 mmol/L [facility] Potassium 4.8 3.3 - 5.1 mmol/L [facility] Chloride 104 96 - 108 mmol/L [facility] Carbon Dioxide 27 22 - 29 mmol/L [facility] Anion Gap 13 12 - 20 [facility] Urea Nitrogen (BUN) 11 9 - 16 mg/dL [facility] Creatinine, Serum 0.98 0.5 - 1.4 mg/dL [facility] Creatinine Clr Calc Pharmacy 109.3 [facility] Comment:eGFR (calculated fro m the MDRD study equation) and eCrCl(calculated from the Cockcroft-Gault equation) are based ondifferent parameters and may not yield comparable results.If eCrCl result is absurd, please check patient'sheight/weight. Estimated Glomerular Filt Rate >60 [facility] Comment:Chronic Kidney Disea se: Estimated GFR < 60 mL/min/1.63v1Jqnthf Kidney Disease: Estimated GFR < 15 mL/min/1.73m2 Glucose 124(H) 60 - 115 mg/dL [facility] Calcium 9.6 8.4 - 10.2 mg/dL [facility] 07/14/2024 10:0 1 AM EST 07/14/2024 10:05 AM EST us Generic External Data Provider LAB BLOOD ORDERAB LES Final Result Performing Organization Address City/[facility]/ZIP Co de Phone Number [facility] [address] [place] [address] [phone] * Culture, Urine, Routine (07/14/2024 12:00 AM EST) Urine Urine specimen obtained by clean catch procedure / Unknown 07/14/2024 07/14/2024 Comment:UACC Narrative [facility] - 07/15/2024 8:20 AM EST Urine Culture No growth. Specimen Source: Urine clean catch Generic External Data Provider LAB MICROBIOLOGY - GENERAL ORDERABLES Final Result [facility] [address] [place] [address] [phone] * CT ABD/PELVIS W/O + W/ IV CONTRAST (06/18/2024 7:35 AM EST) Anatomical Region Laterality Modality Body, Pelvis, Abdomen Computed T omography Historical Provider MD ENAMORADO CT PROCEDURES Final R esult * POCT EMMETT-14 Urine Drug Screen (06/11/2024 9:55 AM EST) THC Negative Cocaine Screen, Urine Negative Opiate [...] procedure / Unknown 06/11/2024 9:55 AM EST Carloz Victor MD POINT OF CARE TEST ENTER/EDIT OR DERABLES Final Result * Lipid Panel, Standard (06/23/2023 4:15 PM EST) Triglycerides 89 <150 mg/dL [facility] Comment:Desirable Triglyceri de: less than 150 mg/dLBorderline High Triglyceride 150-199 mg/dLHigh Triglyceride: 200-499 mg/dLVery High Triglyceride: greater than or equal to 5OO mg/dL Cholesterol 158 <200 mg/dL [facility] Comment:Desirable Cholestero l: less than 200 mg/dLBorderline High Cholesterol: 200-239 mg/dLHigh Cholesterol: greater than 239 mg/dL LDL Cholesterol Calculated 90 <100 mg/dL [facility] Comment:Desirable LDL: less than 100 mg/dLNear Optimal/Above Optimal LDL: 110- 129 mg/dLBorderline High LDL: 130-159 mg/dLHigh LDL: 160-189 mg/dLVery High LDL: greater than or equal to 190 mg/dL HDL Cholesterol 51 >40 mg/dL [facility] Comment:Desirable HDL: great er than 40 mg/dL Note: This HDL assay may give artificially low results in patients with liver disease. Blood Venous blood specimen / Unknown 06/23/2023 4:15 PM EST 06/23/2023 5:21 PM EST Marlee Larson MD LAB BLOOD ORDERABLES Final Re sult Performing Organization Address City/[facility]/ZIP Co de Phone Number [facility] [address] [place] [address] [phone] * Hepatitis C Ab (12/13/2022 11:36 AM EDT) Hepatitis C Antibody Nonreactive Nonreactive [facility] Comment:Antibodies to HCV no t detected; does not exclude early acuteHCV infection. 12/13/2022 11:3 6 AM EDT 12/13/2022 2:45 PM EDT [facility] External Provider LAB BLO OD ORDERABLES Final Result Performing Organization Address [facility]/ZIP Co de Phone Number [facility] [address] [place] [address] [phone] from Last 3 Months or Most Recently Relevant to Health Maintenance Insurance [employer] Care Teams Power Washer Relationship Specialty Start Date End Date Marlee Larson MD [address] [place] [phone] PCP - General Family Medicine 04/04/23
--- OUTSIDE RECORDS SUMMARY | 2024-07-24 10:59 | XMS_ITS | Encounter Summary ---
Author Organization [employer] [facility] Address [address] [facility] [address] [place] [address] Care Team Providers Care Computer Systems Manager Name Role Phone Marlee Larson MD Primary Care Provider [phone] Encounter Details Date Type Department Care Team (Late st Contact Info) Description 06/21/2024 Orders Only [facility] [address] [place] [address] Provider, MD Sera Social History Tobacco Use [...] Description 08/06/2024 10:30 AM EDT Office Visit [facility] [address] [place] [address] Carloz Victor MD [address] [place] [address] documented as of this encounter Procedures Procedure [...] documented as of this encounter Care Teams Computer Systems Manager Relationship Specialty Start Date End Date Marlee Larson MD [address] [place] [address] PCP - General Family Medicine 04/04/23 documented as of this encounter
== END 2024-07-24 09:48 | disposition home or self-care (01) ==
PROVIDERS: PCP Family Medicine; Visit Provider Surgery
DX: Z90.49 Acquired absence of other specified parts of digestive tract (principal)
CPT/HCPCS: 99024

== ENCOUNTER → 2024-07-24 09:42 | Outpatient (BNVA) | payer OTHER, SELFPAY | PROVIDERS: PCP Family Medicine; Visit Provider Surgery | DX: Z09 Encounter for follow-up examination after completed treatment for conditions other than malignant neoplasm (principal); Z90.49 Acquired absence of other specified parts of digestive tract | CPT/HCPCS: 99212 ==

== ENCOUNTER 2024-12-10 10:35 | Outpatient (REF) | payer SELFPAY ==
--- OUTSIDE RECORDS SUMMARY | 2024-12-10 11:26 | XMS_ITS | Encounter Summary ---
Author Organization [employer] Address [address] [place] [address] Care Team Providers Care Information Technology Auditor Name Role Phone Marlee Larson MD Primary Care Provider Reason for Visit * Reason Onset Date Comments Nurse Triage 10/31/2024 Encounter Details Date Type Department Care Team ([facility] st Contact Info) Description 10/31/2024 Telephone [facility] [address] [place] [address] Marlee Larson MD [address] [place], [place] [phone] Nurse Triage Social History Tobacco Use Types Packs/Day Years [...] encounter Miscellaneous Notes * Telephone Encounter - Meena Long RN - 10/31/2024 1:19 PM EDT Triage call Pt reports both shoulders have pain and limited mobility. Pt reports able to lift hand up to shoulder level with much pain. Pt reports this is chronic and PCP has given last injection 5 months ago. Pt denies numbness or radiation of pain to either arm. No available apts in [facility] today or this week. Offered [facility] to Pt hours given. Pt is advised to call back for possible apt beginning of next week. Pt agrees with disposition and home care advised. Protocol Used: Shoulder Pain (Adult) Protocol-Based Disposition: Home Care Positive Triage Question: * Shoulder pain * All higher-acuity triage questions were negative Care Advice Discussed: * Reassurance and Education - Shoulder Pain * Pain Medicines * Pain Medicines - Extra Notes and Warnings * Reasons To Call Back - Chest pain or difficulty breathing occurs - Moderate pain (such as interferes with normal activities) lasts over 3 days - Mild pain lasts over 7 days - You become worse * Use a Cold Pack for Pain * Use Heat After 48 Hours for Pain * Telephone Encounter - Rj Beckman - 10/31/2024 12:10 PM EDT Symptom: Shoulder Pain - Not From Injury Outcome: Schedule an urgent appointment (within 1 hour) or talk to a nurse or provider soon Reason: Can't use the shoulder normally Please contact pt at [phone]. documented in this encounter Plan of Treatment Upcoming Encounters Date Type Department Care Team (Late st Contact Info) Description 12/24/2024 10:30 AM EDT Office Visit [facility] [address] [place] [address] Carloz Victor MD [address] [place] [phone] 01/03/2025 3:45 PM EDT Procedure Visit [facility] [address] [place] [address] Marlee Larson MD [address] [place] [address] documented as of this encounter Visit Diagnoses Not on filedocumented in this encounter Additional Health Concerns Assessment Noted Time PHQ-9 Depression Total Score: 1 04/04/20 10:49 AM EST documented as of this encounter Care Teams Information Technology Auditor Relationship Specialty Start Date End Date Marlee Larson MD [address] [place] [address] PCP - General Family Medicine 04/04/23 documented as of this encounter
--- OUTSIDE RECORDS SUMMARY | 2024-12-10 11:26 | XMS_ITS | Clinical Summary ---
Author Organization [address] [facility] Address [address] [place] [address] Phone Care Team Providers Care Audiovisual Tech Name Role Phone Unavailable Primary Care Provider Unavailabl e Social History Tobacco Use Types Packs/Day Years [...] Vaccines (1 of 2) 02/23/2022 COVID-19 Vaccine (1 - 2023-2 5 season) 2024 Influenza Vaccine (#1) 2025 HIB Vaccines Aged Out No longer eligi [...] age to complete this topic Meningococcal B Vaccine Aged Out No l onger eligible based on patient's age to complete this topic RSV Immunization Patients Un esteban 20 months Aged Out No longer eligible b ased on patient's age to complete this topic Varicella Vaccines Aged Out No longer eligible based on patient's age to complete this topic
[2024-12-10 15:11] LABS: MANUAL DIFF FLAG NO
[2024-12-10 15:42] LABS: Appearance Urine Clear; Glucose Urine UA Negative (Negative); PH 5.5 (5.0-9.0); Specific Gravity - Urine 1.025 (1.005-1.025); UMIC TRIGGER UACC YES
[2024-12-10 15:45] LABS: Hematocrit 41.3 % (42.0-52.0); Hemoglobin 13.2 g/dl (14.0-18.0); Imm Gran Abs Auto 0.01 X10*3/uL (0.00-0.03); Imm Gran Pct Auto 0.2 % (0.0-0.4); Lymphocytes Absolute Auto 1.8 X10*3/uL (1.2-4.9); Mean Corpuscular HGB Conc 32.0 g/dl (31.0-36.0); Mean Corpuscular Hemoglobin 28.4 pg (27.0-33.0); Mean Corpuscular Volume 88.8 fL (80.0-98.0); NRBC Abs Auto 0.000 X10*3/uL (0.0-0.012); NRBC Pct Auto 0.0 /100WBC (0.0-0.2); Platelet Count 240 X10*3/uL (160-400); Red Blood Count 4.65 X10*6/uL (4.60-5.80); White Blood Count 5.0 X10*3/uL (4.8-10.8)
[2024-12-10 15:50] LABS: UACC Culture Trigger YES
[2024-12-10 16:01] LABS: Alanine Aminotransferase 31 U/L (0-40); Albumin Level 4.0 g/dL (3.5-5.0); Alkaline Phosphatase 58 U/L (39-117); Anion Gap 10 (12-20); Aspartate Amino Transferase 59 U/L (5-37); Blood Urea Nitrogen 9 mg/dL (9-16); Calcium 9.0 mg/dL (8.4-10.2); Carbon Dioxide 30 mmol/L (22-29); Chloride 105 mmol/L (96-108); Cholesterol 141 mg/dL (<200); Estimated Glomerular Filt Rate > 60; HDL Cholesterol 42 mg/dL (>40); Potassium 4.4 mmol/L (3.3-5.1); Sodium 141 mmol/L (135-145); Total Protein 7.3 g/dL (6.5-8.0); Triglycerides 84 mg/dL (<150)
== END 2024-12-10 10:36 | disposition home or self-care (01) ==
LOC: HO.CHCLDS 10:35
PROVIDERS: Visit Provider Family Medicine
DX: E66.01 Morbid (severe) obesity due to excess calories (principal); I10 Essential (primary) hypertension; Z68.42 Body mass index [BMI] 45.0-49.9, adult
CPT/HCPCS: 36415; 80053; 80061; 81001; 82306; 84443; 85025; 87086; 87088

== ENCOUNTER 2025-01-03 16:32 | Outpatient (REF) | payer SELFPAY ==
--- OUTSIDE RECORDS SUMMARY | 2025-01-03 16:35 | XMS_ITS | Clinical Summary ---
Author Organization [address] [facility] Address [address] [place] [address] Phone Care Team Providers Care Retail Team Leader Name Role Phone Unavailable Primary Care Provider [...] - 2023-2 5 season) 2024 Depression Screening 05/30/2024 Influenza Vaccine (#1) 2025 HIB Vaccines Aged [...]
[2025-01-03 18:11] LABS: Appearance Urine Clear; Glucose Urine UA Negative (Negative); PH 5.5 (5.0-9.0); Specific Gravity - Urine 1.025 (1.005-1.025); UMIC TRIGGER UACC YES
== END 2025-01-03 16:33 | disposition home or self-care (01) ==
LOC: HO.CHCLNP 16:32
PROVIDERS: PCP Family Medicine; Visit Provider Family Medicine
DX: R30.0 Dysuria (principal)
CPT/HCPCS: 81001